=== PATIENT | male | born 1980 | race Caucasian/White ===

== ENCOUNTER → 2021-11-20 14:11 | Outpatient (BNVA) | payer SELFPAY | PROVIDERS: PCP Internal Medicine; Visit Provider Internal Medicine | DX: Z02.79 Encounter for issue of other medical certificate (principal) ==

== ENCOUNTER 2022-07-14 10:34 | Emergency (ER) | payer OTHER, SELFPAY ==
--- NOTE | ~2022-07-14 | MR_ITS ---
EXAMINATION: MR BRAIN WITHOUT CONTRAST CLINICAL INFORMATION: Left upper extremity numbness. Rule out acute stroke. COMPARISON: Head CT dated 07/14/2022. TECHNIQUE: Multiplanar, multisequence imaging of the brain was performed without contrast. FINDINGS: No diffusion abnormalities are identified to suggest an acute infarct. The ventricles are normal in size. No mass effect or midline shift is seen. No brain parenchymal signal abnormality is noted. No extra-axial fluid collections are seen. The brainstem and cerebellum are normal. There is mild generalized parenchymal volume loss for patient age. The gradient refocused acquisition demonstrates no pathologic magnetic susceptibility artifact to indicate underlying acute or chronic blood products. The craniovertebral junction, marrow signal, and midline structures are normal. The major intracranial flow voids at the level of the [place] are preserved. The dural venous sinus flow voids are maintained. The mastoid air cells are well aerated. There is moderate ethmoid sinus mucosal thickening and milder mucosal thickening in the maxillary antra bilaterally. The remaining paranasal sinuses are fairly well aerated. MR/MR head/brain wo con IMPRESSION: No acute intracranial process. Moderate ethmoid sinus mucosal thickening.
--- NOTE | ~2022-07-14 | XR_ITS ---
EXAMINATION: XR CHEST CLINICAL INFORMATION: Palpitations COMPARISON: 03/06/2006 TECHNIQUE: Frontal view of the chest was obtained. FINDINGS: Cardiac leads overlie the chest. The lungs are well expanded. There is no focal consolidation, edema, or effusion. No pneumothorax. The cardiomediastinal silhouette is within normal limits. No acute osseous abnormality. XR/XR chest 1V IMPRESSION: No acute pulmonary disease.
--- NOTE | ~2022-07-14 | CT_ITS ---
EXAMINATION: CT HEAD WITHOUT CONTRAST CLINICAL INFORMATION: Left arm numbness. COMPARISON: None TECHNIQUE: Contiguous axial imaging was performed from the skull base to vertex without intravenous administration of contrast. Coronal and sagittal reformatted images were obtained. This CT examination was performed using dose optimization techniques as appropriate, variously including the following: *Automated exposure control *Adjustment of mA and/or kV according to patient size (this includes techniques or standardized protocols for targeted exams where dose is matched to indication/reason for exam; i.e. extremities or head) *Use of iterative reconstruction technique DLP: 784 mGy-cm FINDINGS: The cortical sulci are normal. The lateral ventricles are symmetrical. The third and fourth ventricles are in their normal midline position. The basilar and prepontine cisterns are unremarkable. There is no acute intra or extracerebral abnormality. There is no mass effect or midline shift. Sections through the bony calvarium are unremarkable. The paranasal sinuses are clear. The bony orbits and orbital contents are unremarkable. CT/CT head/brain wo IV con IMPRESSION: No acute intracranial pathology.
--- NOTE | 2022-07-14 10:40 | ECG_ITS ---
Test Reason : IRREGULAR HR Blood Pressure : / mmHG Vent. Rate : 124 BPM Atrial Rate : 124 BPM P-R Int : 142 ms QRS Dur : 088 ms QT Int : 320 ms P-R-T Axes : 029 028 -02 degrees QTc Int : 459 ms Sinus tachycardia Otherwise normal ECG When compared with ECG of 07-MAY-2004 11:27, No significant change was found Referred By: Generic ED Physician Electronically Signed By:Jose Carlos Lantigua
[2022-07-14 10:46] VITALS: BP 179/115; PULSE 121; RESP 18; TEMP 37.1; O2SAT 97; BMI 33.6
[2022-07-14 10:51] VITALS: BP 168/108
--- NOTE | 2022-07-14 11:32 | ED.NEUROSD ---
HPI - Neuro Symptoms/Deficit General Chief Complaint: Neuro Symptoms/Deficit Stated Complaint: tingling in L hand,head and ear, chest pain Time Seen by Provider: 07/14/22 11:09 Source: patient Mode of arrival: ambulatory Limitations: no limitations History of Present Illness HPI Narrative: A 42-year-old male came in for evaluation of 2 days of palpitation and feeling numbness in left upper extremities and the back of his head for the past 2 days, but no weakness. 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 Related Data Allergies Allergy/AdvReac Type Severity Reaction Status Date / Time coconut Allergy Unknown UNKNOWN Unverified 01/18/20 15:10 Review of Systems Review of Systems: All other systems are reviewed and are negative Constitutional: Reports as per HPI and Reports no additional constitutional complaints Eyes: Reports as per HPI and Reports no additional eye complaints Reports system reviewed and no additional complaints, except as documented Cardiovascular: Reports as per HPI and Reports no additional cardiovascular complaints Respiratory: Reports as per HPI and Reports no additional respiratory complaints Gastrointestinal: Reports as per HPI and Reports no additional gastrointestinal complaints Genitourinary: Reports no additional female genitourinary complaints Musculoskeletal: Reports no additional musculoskeletal complaints Skin/Breast: Reports system reviewed and no additional complaints, except as docu Psychiatric: Reports no additional psychiatric complaints Endocrine: Reports no additional endocrine complaints Hematologic/Lymphatic: Reports no additional hematologic/lymphatic complaints Allergic/Immunologic: Reports no additional allergic/immunologic complaints Reports system reviewed and no additional complaints, except as documented and Reports Abnormal speech present [facility] Social History Social History Alcohol intake: current Alcohol type: beer and hard liquor Smoked in Last 30 Days: No Use of substances other than those prescribed or required for medical reasons: Yes Substance Use Type: Crack/Cocaine and Marijuana Substance Use Frequency: Occasionally Last Used Substance: Weeks (ago) Any prior treatment program specific to substance use: No Advance Directives: No Physical Exam Vital Signs: Vital Signs: Last Vital Signs Temp 98.7 F 07/14/22 10:46 Pulse 112 H 07/14/22 14:16 Resp 20 07/14/22 14:16 BP 186/109 H 07/14/22 14:16 Pulse Ox 97 07/14/22 14:16 O2 Del Method 07/14/22 14:16 BMI result Body Mass Index 33.6 Vital signs have been reviewed as appeared to be correct. Blood pressure normal. Heart rate normal. Respiration rate normal. Temperature normal. Oxygen saturation normal. Appearance: Anxious, Alert. Oriented X3. No acute distress. Head: Normal external exam. Normocephalic. Atraumatic. No Krishnan signs noted. No raccoon eyes noted Eyes: PERRLA. EOMI. Conjunctiva and sclera normal. Eyelids normal. ENT: TM's Normal. Pharynx normal. Uvula midline. Moist mucous membranes. No trismus noted. No drooling noted. No muffled voice noted. Neck: Normal inspection. Neck supple. FROM. No adenopathy. Thyroid Normal. No meningeal signs. No neck mass noted. CVS: Normal heart rate and rhythm. Heart sound normal. No murmurs noted. Pulses normal throughout. Respiratory: No respiratory distress. Painless inspiration. Breath sounds normal. No wheezes/rales/rhonchi noted. Chest nontender. No accessory muscle usage noted or decreased air movement noted. Abdomen: Soft and nontender. Bowel sounds normal in all 4 quadrants. No distention noted. No organomegaly noted. No visible injury noted. Back: No CVA tenderness. Full range of motion noted. Skin: Skin warm and dry. Normal skin color. Normal skin turgor. No rashes/lesions/lacerations noted. Extremities: No lower extremity edema. Extremities exhibit normal range of motion. Extremities nontender. Neuro: Oriented X 3. Cranial nerve exam: II-XII are grossly intact No motor deficit. No sensory deficit. Reflexes normal. Course Course Course Narrative: 42-year-old male daily drinker of alcohol came in with palpitation and feeling numbness in his left side of his body, patient with a normal neuro exam, hypertension start the patient on atenolol, because patient is showing symptoms of alcohol withdrawal will start the patient on phenobarb. Medications Administered Discontinued Medications Generic Name Dose Route Start Last Admin Trade Name Freq PRN Reason Stop Dose Admin Atenolol 50 mg 07/14/22 15:20 07/14/22 15:51 Atenolol 50 Mg Tablet PO 07/14/22 15:21 50 mg ONCE ONE Administration Protocol Sodium Chloride 1,000 mls @ 999 mls/hr 07/14/22 11:20 07/14/22 12:56 Ns IV 07/14/22 12:20 Infused .Q1H1M ONE Infusion Medical Decision Making Differential Diagnosis Differential Diagnoses: The differential diagnosis associated with the presentation includes TIA, CVA, alcohol withdrawal, hypertension. Admission/Observation Consideration of admission/observation: Escalation of care including admission/observation considered Consult Healthcare Provider Management of the patient was discussed with: Hospitalist Lab Data MDM Lab Attestation statement: I reviewed the patient's lab results. 07/14/22 11:42 07/14/22 11:42 Labs: Lab Results 07/14/22 07/14/22 07/14/22 Range/Units 11:42 11:42 11:42 WBC 8.1 (4.8-10.8) X10*3/uL RBC 4.63 (4.60-5.80) X10*6/uL Hgb 14.6 (14.0-18.0) g/dl Hct 42.5 (42.0-52.0) % MCV 91.8 (80.0-98.0) fL MCH 31.5 (27.0-33.0) pg MCHC 34.4 (31.0-36.0) g/dl RDW 13.7 (11.0-16.0) % Plt Count 159 L (160-400) X10*3/uL MPV 10.0 (9.4-12.4) fL Immature Gran % (Auto) 0.2 (0.0-0.4) % Neut % (Auto) 72.8 (45-73) % Lymph % (Auto) 17.6 L (20-40) % [place] % (Auto) 7.6 (2-11) % Eos % (Auto) 1.6 (0-4) % Baso % (Auto) 0.2 (0-2) % Lymph # (Auto) 1.4 (1.2-4.9) X10*3/uL [place] # (Auto) 0.6 (0.1-1.2) X10*3/uL Eos # (Auto) 0.1 (0.0-0.4) X10*3/uL Baso # (Auto) 0.0 (0.0-0.2) X10*3/uL Abs Immat Gran (auto) 0.02 (0.00-0.03) X10*3/uL Absolute Neuts (auto) 5.9 (2.0-8.3) x10*3/uL Absolute Nucleated RBC 0.000 (0.0-0.012) X10*3/uL Nucleated RBC % (auto) 0.0 (0.0-0.2) /100WBC Sodium 143 (135-145) mmol/L Potassium 4.5 (3.3-5.1) mmol/L Chloride 107 (96-108) mmol/L Carbon Dioxide 25 (22-29) mmol/L Anion Gap 16 (12-20) BUN 12 (9-16) mg/dL Creatinine 1.21 (0.5-1.4) mg/dL Estim Creat Clear Calc 86.6 Estimated GFR > 60 Random Glucose 104 (60-115) mg/dL Calcium 9.0 (8.4-10.2) mg/dL Total Bilirubin 0.3 (0.0-1.0) mg/dL Direct Bilirubin < 0.2 (0.0-0.5) mg/dL AST 48 H (5-37) U/L ALT 46 H (0-40) U/L Alkaline Phosphatase 64 (39-117) U/L Troponin I High Sens 5.7 (<3.5-35.0) ng/L Total Protein 7.2 (6.5-8.0) g/dL Albumin 4.1 (3.5-5.0) g/dL Lipase 65 (8-78) U/L Urine Color Urine Appearance Urine pH (5.0-9.0) Ur Specific [place] (1.005-1.025) Urine Protein (Neg-Trace) mg/dL Urine Glucose (UA) (Negative) mg/dL Urine Ketones (Negative) mg/dL Urine Blood (Negative) Urine Nitrite (Negative) Ur Leukocyte Esterase (Negative) 07/14/22 Range/Units 13:45 WBC (4.8-10.8) X10*3/uL RBC (4.60-5.80) X10*6/uL Hgb (14.0-18.0) g/dl Hct (42.0-52.0) % MCV (80.0-98.0) fL MCH (27.0-33.0) pg MCHC (31.0-36.0) g/dl RDW (11.0-16.0) % Plt Count (160-400) X10*3/uL MPV (9.4-12.4) fL Immature Gran % (Auto) (0.0-0.4) % Neut % (Auto) (45-73) % Lymph % (Auto) (20-40) % [place] % (Auto) (2-11) % Eos % (Auto) (0-4) % Baso % (Auto) (0-2) % Lymph # (Auto) (1.2-4.9) X10*3/uL [place] # (Auto) (0.1-1.2) X10*3/uL Eos # (Auto) (0.0-0.4) X10*3/uL Baso # (Auto) (0.0-0.2) X10*3/uL Abs Immat Gran (auto) (0.00-0.03) X10*3/uL Absolute Neuts (auto) (2.0-8.3) x10*3/uL Absolute Nucleated RBC (0.0-0.012) X10*3/uL Nucleated RBC % (auto) (0.0-0.2) /100WBC Sodium (135-145) mmol/L Potassium (3.3-5.1) mmol/L Chloride (96-108) mmol/L Carbon Dioxide (22-29) mmol/L Anion Gap (12-20) BUN (9-16) mg/dL Creatinine (0.5-1.4) mg/dL Estim Creat Clear Calc Estimated GFR Random Glucose (60-115) mg/dL Calcium (8.4-10.2) mg/dL Total Bilirubin (0.0-1.0) mg/dL Direct Bilirubin (0.0-0.5) mg/dL AST (5-37) U/L ALT (0-40) U/L Alkaline Phosphatase (39-117) U/L Troponin I High Sens (<3.5-35.0) ng/L Total Protein (6.5-8.0) g/dL Albumin (3.5-5.0) g/dL Lipase (8-78) U/L Urine Color Yellow Urine Appearance Clear Urine pH 6.5 (5.0-9.0) Ur Specific [place] 1.020 (1.005-1.025) Urine Protein Trace (Neg-Trace) mg/dL Urine Glucose (UA) Negative (Negative) mg/dL Urine Ketones Trace (Negative) mg/dL Urine Blood Negative (Negative) Urine Nitrite Negative (Negative) Ur Leukocyte Esterase Negative (Negative) Independent Interpretation I performed an independent interpretation of an: EKG (Sinus tachycardia at 124 beats per minutes, normal axis deviation, with normal intervals, no significant change from previous EKG.) and CT Scan (Head: No acute intracranial pathology.) Interpretation: MRI of the brain: No acute stroke. Radiology Impression Discussion of test interpretation with radiology: I have reviewed the radiologist's reading. Discharge Plan Discharge Clinical Impression: Alcohol withdrawal, Hypertension Patient Disposition: Admitted As Inpatient
[2022-07-14] MEDS: 0.9 % Sodium Chloride 1,000 ML 999 ML IV (11:43)
[2022-07-14 11:48] LABS: MANUAL DIFF FLAG NO
[2022-07-14 11:50] LABS: Basophils Percent Auto 0.2 % (0-2); Eosinophils Absolute Auto 0.1 X10*3/uL (0.0-0.4); Eosinophils Percent Auto 1.6 % (0-4); Hematocrit 42.5 % (42.0-52.0); Hemoglobin 14.6 g/dl (14.0-18.0); Imm Gran Abs Auto 0.02 X10*3/uL (0.00-0.03); Imm Gran Pct Auto 0.2 % (0.0-0.4); Lymphocytes Absolute Auto 1.4 X10*3/uL (1.2-4.9); Lymphocytes Percent Auto 17.6 % (20-40); Mean Corpuscular HGB Conc 34.4 g/dl (31.0-36.0); Mean Corpuscular Hemoglobin 31.5 pg (27.0-33.0); Mean Corpuscular Volume 91.8 fL (80.0-98.0); Monocytes Absolute Auto 0.6 X10*3/uL (0.1-1.2); Monocytes Percent Auto 7.6 % (2-11); Neutrophils Absolute Auto 5.9 x10*3/uL (2.0-8.3); Neutrophils Percent Auto 72.8 % (45-73); Platelet Count 159 X10*3/uL (160-400); Red Blood Count 4.63 X10*6/uL (4.60-5.80); Red Cell Distribution Width 13.7 % (11.0-16.0); White Blood Count 8.1 X10*3/uL (4.8-10.8)
[2022-07-14 12:11] LABS: Alanine Aminotransferase 46 U/L (0-40); Albumin Level 4.1 g/dL (3.5-5.0); Alkaline Phosphatase 64 U/L (39-117); Anion Gap 16 (12-20); Aspartate Amino Transferase 48 U/L (5-37); Bilirubin Direct < 0.2 mg/dL (0.0-0.5); Bilirubin Total 0.3 mg/dL (0.0-1.0); Blood Urea Nitrogen 12 mg/dL (9-16); Carbon Dioxide 25 mmol/L (22-29); Chloride 107 mmol/L (96-108); Creatinine Clr Calc Pharmacy 86.6; Estimated Glomerular Filt Rate > 60; Glucose Random 104 mg/dL (60-115); Lipase 65 U/L (8-78); Potassium 4.5 mmol/L (3.3-5.1); Sodium 143 mmol/L (135-145); Total Protein 7.2 g/dL (6.5-8.0)
[2022-07-14 12:18] LABS: Troponin-I High Sensitivity 5.7 ng/L (<3.5-35.0)
[2022-07-14 13:51] LABS: Appearance Urine Clear; Color Urine Yellow; Glucose Urine UA Negative (Negative); Leukocyte Esterase Urine Negative (Negative); Nitrite Urine Negative (Negative); PH 6.5 (5.0-9.0); Urine Blood Negative (Negative); Urine Ketones Trace mg/dL (Negative); Urine Protein Trace mg/dL (Neg-Trace)
[2022-07-14 14:16] VITALS: BP 186/109; PULSE 112; RESP 20; O2SAT 97
[2022-07-14] MEDS: atenoloL 50 MG TABLET PO (15:51)
[2022-07-14] MEDS: PHENobarbitaL sodium 130 MG/ML IM ONCE 265 MG IM (17:06)
--- NOTE | 2022-07-14 17:23 | PHA.MEDREC ---
Pharmacy Consult ? Medication Reconciliation Pharmacy has completed the medication reconciliation. Pt does not take any home meds but did take 4 tablets of chew aspirin 81 mg today 07/14/22
[2022-07-14 18:41] VITALS: BP 182/109; PULSE 83; RESP 16
[2022-07-14] MEDS: lisinopriL 10 MG TABLET PO ×2 (18:47→21:36)
[2022-07-14] MEDS: Labetalol HCL 100 MG/20 ML VIAL 10 MG IVPUSH (18:47)
[2022-07-14] MEDS: chlordiazePOXIDE HCl 25 MG CAPSULE 50 MG PO (18:47)
--- NOTE | 2022-07-14 18:51 | ED.NEUROSD ---
HPI - Neuro Symptoms/Deficit General Chief Complaint: Neuro Symptoms/Deficit Stated Complaint: tingling in L hand,head and ear, chest pain Time Seen by Provider: 07/14/22 11:09 Related Data Previous Rx's Medication Instructions Recorded chlordiazepoxide HCl 25 mg capsule 50 mg PO Q6-8H PRN alcohol 07/14/22 withdrawal #16 caps lisinopril 20 1 tab PO DAILY #90 tabs 07/14/22 mg-hydrochlorothiazide 12.5 mg tablet Allergies Allergy/AdvReac Type Severity Reaction Status Date / Time coconut Allergy Unknown UNKNOWN Unverified 01/18/20 15:10 [facility] Social History Social History Alcohol intake: current Alcohol type: beer and hard liquor Smoked in Last 30 Days: No Use of substances other than those prescribed or required for medical reasons: Yes Substance Use Type: Crack/Cocaine and Marijuana Substance Use Frequency: Occasionally Last Used Substance: Weeks (ago) Any prior treatment program specific to substance use: No Advance Directives: No Physical Exam Vital Signs: Vital Signs: Last Vital Signs Temp 98.2 F 07/14/22 20:10 Pulse 82 07/14/22 20:10 Resp 11 L 07/14/22 20:10 BP 153/108 H 07/14/22 20:10 Pulse Ox 97 07/14/22 20:10 O2 Del Method 07/14/22 20:10 BMI result Body Mass Index 33.6 Medications Administered Discontinued Medications Generic Name Dose Route Start Last Admin Trade Name Freq PRN Reason Stop Dose Admin Atenolol 50 mg 07/14/22 15:20 07/14/22 15:51 Atenolol 50 Mg Tablet PO 07/14/22 15:21 50 mg ONCE ONE Administration Protocol Chlordiazepoxide HCl 50 mg 07/14/22 18:39 07/14/22 18:47 Chlordiazepoxide Hcl 25 Mg Capsule PO 07/14/22 18:40 50 mg ONCE ONE Administration Sodium Chloride 1,000 mls @ 999 mls/hr 07/14/22 11:20 07/14/22 12:56 Ns IV 07/14/22 12:20 Infused .Q1H1M ONE Infusion Labetalol HCl 10 mg 07/14/22 18:43 07/14/22 18:47 Labetalol Hcl 100 Mg/20 Ml Vial IVPUSH 07/14/22 18:44 10 mg ONCE ONE Administration Lisinopril 10 mg 07/14/22 18:43 07/14/22 18:47 Lisinopril 10 Mg Tablet PO 07/14/22 18:44 10 mg ONCE ONE Administration Protocol Lisinopril 10 mg 07/14/22 20:15 07/14/22 21:36 Lisinopril 10 Mg Tablet PO 07/14/22 20:16 10 mg ONCE ONE Administration Protocol Phenobarbital Sodium 265 mg 07/14/22 16:00 07/14/22 17:06 Phenobarbital Sodium 130 Mg/Ml Im Once IM 07/14/22 16:01 265 mg ONCE ONE Administration Protocol Medical Decision Making Lab Data 07/14/22 11:42 07/14/22 11:42 Labs: Lab Results 07/14/22 07/14/22 07/14/22 Range/Units 11:42 11:42 11:42 WBC 8.1 (4.8-10.8) X10*3/uL RBC 4.63 (4.60-5.80) X10*6/uL Hgb 14.6 (14.0-18.0) g/dl Hct 42.5 (42.0-52.0) % MCV 91.8 (80.0-98.0) fL MCH 31.5 (27.0-33.0) pg MCHC 34.4 (31.0-36.0) g/dl RDW 13.7 (11.0-16.0) % Plt Count 159 L (160-400) X10*3/uL MPV 10.0 (9.4-12.4) fL Immature Gran % (Auto) 0.2 (0.0-0.4) % Neut % (Auto) 72.8 (45-73) % Lymph % (Auto) 17.6 L (20-40) % [place] % (Auto) 7.6 (2-11) % Eos % (Auto) 1.6 (0-4) % Baso % (Auto) 0.2 (0-2) % Lymph # (Auto) 1.4 (1.2-4.9) X10*3/uL [place] # (Auto) 0.6 (0.1-1.2) X10*3/uL Eos # (Auto) 0.1 (0.0-0.4) X10*3/uL Baso # (Auto) 0.0 (0.0-0.2) X10*3/uL Abs Immat Gran (auto) 0.02 (0.00-0.03) X10*3/uL Absolute Neuts (auto) 5.9 (2.0-8.3) x10*3/uL Absolute Nucleated RBC 0.000 (0.0-0.012) X10*3/uL Nucleated RBC % (auto) 0.0 (0.0-0.2) /100WBC Sodium 143 (135-145) mmol/L Potassium 4.5 (3.3-5.1) mmol/L Chloride 107 (96-108) mmol/L Carbon Dioxide 25 (22-29) mmol/L Anion Gap 16 (12-20) BUN 12 (9-16) mg/dL Creatinine 1.21 (0.5-1.4) mg/dL Estim Creat Clear Calc 86.6 Estimated GFR > 60 Random Glucose 104 (60-115) mg/dL Calcium 9.0 (8.4-10.2) mg/dL Total Bilirubin 0.3 (0.0-1.0) mg/dL Direct Bilirubin < 0.2 (0.0-0.5) mg/dL AST 48 H (5-37) U/L ALT 46 H (0-40) U/L Alkaline Phosphatase 64 (39-117) U/L Troponin I High Sens 5.7 (<3.5-35.0) ng/L Total Protein 7.2 (6.5-8.0) g/dL Albumin 4.1 (3.5-5.0) g/dL Lipase 65 (8-78) U/L Urine Color Urine Appearance Urine pH (5.0-9.0) Ur Specific [place] (1.005-1.025) Urine Protein (Neg-Trace) mg/dL Urine Glucose (UA) (Negative) mg/dL Urine Ketones (Negative) mg/dL Urine Blood (Negative) Urine Nitrite (Negative) Ur Leukocyte Esterase (Negative) 07/14/22 Range/Units 13:45 WBC (4.8-10.8) X10*3/uL RBC (4.60-5.80) X10*6/uL Hgb (14.0-18.0) g/dl Hct (42.0-52.0) % MCV (80.0-98.0) fL MCH (27.0-33.0) pg MCHC (31.0-36.0) g/dl RDW (11.0-16.0) % Plt Count (160-400) X10*3/uL MPV (9.4-12.4) fL Immature Gran % (Auto) (0.0-0.4) % Neut % (Auto) (45-73) % Lymph % (Auto) (20-40) % [place] % (Auto) (2-11) % Eos % (Auto) (0-4) % Baso % (Auto) (0-2) % Lymph # (Auto) (1.2-4.9) X10*3/uL [place] # (Auto) (0.1-1.2) X10*3/uL Eos # (Auto) (0.0-0.4) X10*3/uL Baso # (Auto) (0.0-0.2) X10*3/uL Abs Immat Gran (auto) (0.00-0.03) X10*3/uL Absolute Neuts (auto) (2.0-8.3) x10*3/uL Absolute Nucleated RBC (0.0-0.012) X10*3/uL Nucleated RBC % (auto) (0.0-0.2) /100WBC Sodium (135-145) mmol/L Potassium (3.3-5.1) mmol/L Chloride (96-108) mmol/L Carbon Dioxide (22-29) mmol/L Anion Gap (12-20) BUN (9-16) mg/dL Creatinine (0.5-1.4) mg/dL Estim Creat Clear Calc Estimated GFR Random Glucose (60-115) mg/dL Calcium (8.4-10.2) mg/dL Total Bilirubin (0.0-1.0) mg/dL Direct Bilirubin (0.0-0.5) mg/dL AST (5-37) U/L ALT (0-40) U/L Alkaline Phosphatase (39-117) U/L Troponin I High Sens (<3.5-35.0) ng/L Total Protein (6.5-8.0) g/dL Albumin (3.5-5.0) g/dL Lipase (8-78) U/L Urine Color Yellow Urine Appearance Clear Urine pH 6.5 (5.0-9.0) Ur Specific [place] 1.020 (1.005-1.025) Urine Protein Trace (Neg-Trace) mg/dL Urine Glucose (UA) Negative (Negative) mg/dL Urine Ketones Trace (Negative) mg/dL Urine Blood Negative (Negative) Urine Nitrite Negative (Negative) Ur Leukocyte Esterase Negative (Negative) Discharge Plan Discharge Clinical Impression: Alcohol withdrawal Qualifiers: Complication of substance-induced condition: uncomplicated Qualified Code(s): F10.930 - Alcohol use, unspecified with withdrawal, uncomplicated Hypertension Qualifiers: Hypertension type: primary hypertension Qualified Code(s): I10 - Essential (primary) hypertension Patient Disposition: Home, Self-Care Instructions: Alcohol Withdrawal (ED), Hypertension (ED) Additional Instructions: Stop drinking alcohol Check blood pressure daily should be less than 135/85 Blood pressure medication as prescribed Follow up with PCP and detox Prescriptions: New lisinopril-hydrochlorothiazide 20-12.5 mg tablet 1 tab PO DAILY Qty: 90 3RF chlordiazepoxide HCl 25 mg capsule 50 mg PO Q6-8H PRN (Reason: alcohol withdrawal) Qty: 16 0RF Rx Instructions: until symptoms controlled Interventions: ED Discharge Assessment Last Done: 07/14/22 21:41
[2022-07-14 19:46] VITALS: BP 161/111; PULSE 81
[2022-07-14 20:10] VITALS: BP 153/108; PULSE 82; RESP 11; TEMP 36.8; O2SAT 97
== END 2022-07-16 19:33 | disposition home or self-care (01) ==
PROVIDERS: Emergency Provider Emergency Medicine; PCP Student in an Organized Health Care Education/Training Program
DX: F10.930 Alcohol use, unspecified with withdrawal, uncomplicated (principal); Y90.9 Presence of alcohol in blood, level not specified; I10 Essential (primary) hypertension
CPT/HCPCS: 36415; 70450; 70551; 71045; 80048; 80076; 81003; 83690; 84484; 85025; 93005; 96361; 96372; 96374; 99285; J2560

== ENCOUNTER → 2022-07-30 12:44 | Outpatient (BNVA) | payer SELFPAY | PROVIDERS: PCP Physician Assistant; Visit Provider Physician Assistant | DX: Z02.79 Encounter for issue of other medical certificate (principal) ==

== ENCOUNTER 2022-11-12 11:15 | Outpatient (AMB) | payer OTHER, SELFPAY ==
--- NOTE | 2022-11-12 11:16 | MHC.PC.OV ---
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, requesting physical Load Manager Required: No Accompanied by: Self / Same As Patient Allergies coconut Allergy (Unknown, Verified 11/12/22 12:10) UNKNOWN Medication List - Last Reconciled 11/12/22 by Neal Gann PA-C lisinopril-hydrochlorothiazide 20-12.5 mg 1 tab PO DAILY Tobacco use date assessed: 11/12/22 Dental Screening Dental Screen Date: 11/12/22 Did you have a dental visit in the last 12 months?: No Did you have a dental problem in the last 6 months where you did not have access to dental care?: No Was dental information given to patient?: No 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 Patient has a past medical history significant for hypertension, alcohol dependency.. . Hypertension: Has had hypertension for many years now and has been on lisinopril hydrochlorothiazide. Does understand his drinking and smoking has been causing his blood pressure to worsen. He does report as of late having localize chest discomfort in his chest at rest. He attributes this to his previous smoking and has quit smoking over the last few weeks. .. Alcohol use disorder: Over the last several weeks has been reducing his alcohol intake. He does report being heavy alcohol drinker and does understand this is a problem. He is willing to try medication to help with his cravings. He has reduced his alcohol intake to 3 beers daily. .. Obesity: He does understand his BMI is over 30 will try to work on being more physically active and adapt to better eating habits to reduce his weight Vaccines: Up-to-date with COVID vaccine, needs tetanus vaccine though declines today PFSH Family History (Updated 11/12/22 @ 12:16 by Neal Gann PA-C) Father Diabetes Valvular heart disease Social History (Updated 11/12/22 @ 12:16 by Neal Gann PA-C) Housing: House Alcohol intake: current Alcohol intake frequency: 3 or more drinks per day Alcohol type: beer Patient Tobacco Use Status: Former Tobacco user Quit Date: 10/2022 Tobacco use type: Cigarette e-Cigarette/Vaping Use: Never Used Substance Use Type: Crack/Cocaine and Marijuana service: No Current occupational status: employed 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 Current occupational exposures/hazards: No Cognitive needs: No Hearing needs: No Vision needs: No Review of Systems Const Denies body aches, Denies chills, Denies excessive sweating, Denies fatigue, Denies fever(s) and Denies headache(s) Eyes Denies blurry vision ENT Denies dysphagia, Denies vertigo, Denies dizziness, Denies headache(s), Denies hearing loss and Denies tinnitus Card Denies chest pain, Denies chest pain with activity, Denies syncope, Denies irregular heart rhythm and Denies dyspnea Resp Denies chest congestion, Denies cough, Denies hemoptysis, Denies dyspnea and Denies wheezing GI Denies abdominal pain, Denies melena, Denies hematochezia, Denies coffee ground emesis, Denies dysphagia, Denies diarrhea, Denies nausea and Denies vomiting Denies difficulty urinating, Denies dysuria, Denies urinary frequency, Denies urinary hesitancy and Denies urinary urgency Musc Denies arthralgias, Denies limited range of motion, Denies muscle cramps and Denies muscle weakness Skin/Breast Denies rash and Denies skin ulcer Neuro Denies Abnormal speech present, Denies confusion, Denies vertigo, Denies dizziness, Denies syncope, Denies headache(s), Denies memory loss and Denies seizure-like activity Psych Denies anxiety, Denies confusion, Denies depression, Denies memory loss, Denies panic attacks and Denies paranoia Endo Denies excessive sweating, Denies fatigue, Denies flushing, Denies polydipsia and Denies polyuria Aller/Immun Denies wheezing Physical exam (Primary Care) Vital Signs: Last Vital Signs Pulse 82 11/12/22 11:28 BP 140/90 H 11/12/22 11:28 Pulse Ox 98 11/12/22 11:28 Oxygen Delivery Method Room Air 11/12/22 11:28 BMI result Body Mass Index 32.0 BMI Assessment/Plan discussion: High Tobacco/Smoking Status: Tobacco use Status Tobacco use date assessed 11/12/22 11/12/22 11:18 Patient Tobacco Use Status Former Tobacco user 11/12/22 12:16 Tobacco use type Cigarette 11/12/22 12:16 e-Cigarette/Vaping Use Never Used 11/12/22 12:16 Const Other: Obese General: cooperative, comfortable, no acute distress, alert and awake; No confusion Orientation/consciousness: oriented to person, oriented to place, patient oriented x3 and No confusion HENMT Head: Yes normocephalic Ears: external ears normal and TM's normal bilaterally Face and sinus: No sinus tenderness Mouth: Normal oral and palatal mucosa present and tongue normal Teeth and gingiva: dentition normal and gingiva normal Throat: Yes posterior oropharynx normal, Yes tonsils normal and Yes uvula midline Eyes Conjunctivae: conjunctivae normal Sclerae: sclerae normal Pupils: Equal, round and reactive pupils present EOM: EOMs intact bilaterally Direct Ophthalmoscopy: No no photophobia Neck Neck: Yes no lymphadenopathy, No tender and Yes no JVD Thyroid: Thyroid normal Carotids: no bruits Chest Chest palpation & inspection: no tenderness Resp Effort & Inspection: normal respiratory effort, no audible wheezes, not labored and no stridor Auscultation: no crackles, no rales, no rhonchi and no wheezes Cardio Jugular venous distension: no JVD Rate: regular rate, not bradycardic and not tachycardic Rhythm: regular rhythm Bruits: no carotid bruits Peripheral pulses: Peripheral pulses 2+ throughout GI Inspection: Yes normal to inspection, No abdominal wall ecchymosis and No visible herniation Palpation (GI): Soft to palpation, nontender, no guarding, not rigid and No hepatosplenomegaly present Auscultation: normoactive bowel sounds General: Yes no CVA tenderness Back/Spine/Pelvis Back: no CVA tenderness and No back tenderness Cervical Spine: cervical ROM normal Thoracic/Lumbar Spine: thoracic and lumbar spine normal to inspection, straight leg raise negative bilaterally, No thoraco-lumbar ROM limited and No lumbar spinal tenderness Skin Lesions: no lesions Rashes: no rashes Wounds: no wounds Neuro General: oriented to person, oriented to place, patient oriented x3, CN's II-XI intact bilaterally and No confusion Cranial nerves: Yes Equal, round and reactive pupils present and Yes Normal accommodation reflex present Cognition (Neuro): normal cognition Speech: No Abnormal speech present Gait exam (Neuro): Normal gait present Motor exam (neuro): 5/5 motor strength present throughout Extrem Right upper extremity: full ROM; no cyanosis Left upper extremity: full ROM; no cyanosis Right lower extremity: no edema Left lower extremity: no edema Psych Appearance: grossly normal Mental Status: mental status grossly normal Affect: normal affect Attitude: cooperative Thought process: Normal thought process present Assessment and Plan Assessment & Plan (1) Annual physical exam: Code(s): Z00.00 - Encounter for general adult medical examination without abnormal findings (2) Hypertension: Code(s): I10 - Essential (primary) hypertension Qualifiers: Hypertension type: primary hypertension Qualified Code(s): I10 - Essential (primary) hypertension Plan: Patient's blood pressure slightly elevated today in office, advised to monitor blood pressure at home with goal blood pressure to be below 140/90. He will we restarted on lisinopril hydrochlorothiazide. Again reinforced low-sodium diet. (3) Screening for diabetes mellitus (DM): Code(s): Z13.1 - Encounter for screening for diabetes mellitus (4) Alcohol use disorder: Code(s): F10.90 - Alcohol use, unspecified, uncomplicated Plan: Patient does admit that he has a problem with alcohol. Has reduced his alcohol drinking to 3 beers a day. He reports previously drinking a full handle liquor and 1 day. He is willing to try naltrexone on a daily basis to help him with his cravings. Will follow-up in next 4-6 weeks to evaluate his progress. (5) Chest pain at rest: Code(s): R07.9 - Chest pain, unspecified Plan: Patient does report lately having some chest pain at rest to which he attributes to smoking. Will send for cardiac stress test due to having risk for coronary artery disease (6) Obese: Code(s): E66.9 - Obesity, unspecified Qualifiers: Obesity type: due to excess calories Obesity classification: adult class 1 (BMI 30 - 34.9) Serious obesity comorbidity presence: without serious comorbidity Body mass index: BMI 32.0-32.9 Qualified Code(s): E66.09 - Other obesity due to excess calories; Z68.32 - Body mass index [BMI] 32.0-32.9, adult Plan: Patient does understand his BMI is over 30 will work on being more physically active and adapting to better eating habits to reduce his weight (7) Former smoker: Code(s): Z87.891 - Personal history of nicotine dependence (8) Borderline high cholesterol: Code(s): E78.9 - Disorder of lipoprotein metabolism, unspecified Plan: Will work on lifestyle modifications to reduce his cholesterol. Has stopped smoking and I congratulated him on this. Goal LDL to be below 130 Orders: Orders Comprehensive [place]. Panel Fast Today Z13.1 - Encounter for screening for diabetes mellitus Microalbumin, Random (w Creat) Today Z13.1 - Encounter for screening for diabetes mellitus CA stress test Today R07.9 - Chest pain, unspecified Lipid Panel Today E78.9 - Disorder of lipoprotein metabolism, unspecified Medications: New naltrexone 50 mg PO DAILY 30 days 30 tabs 3RF F10.90 - Alcohol use, unspecified, uncomplicated naltrexone 50 mg PO DAILY 30 days 30 tabs 3RF F10.90 - Alcohol use, unspecified, uncomplicated Changed From lisinopril-hydrochlorothiazide 20-12.5 mg 1 tab PO DAILY 90 tabs 1RF I10 - Essential (primary) hypertension, R07.9 - Chest pain, unspecified To lisinopril-hydrochlorothiazide 20-12.5 mg 1 tab PO DAILY 90 days 90 tabs 1RF I10 - Essential (primary) hypertension, R07.9 - Chest pain, unspecified Refilled lisinopril-hydrochlorothiazide 20-12.5 mg 1 tab PO DAILY 90 tabs 1RF R07.9 - Chest pain, unspecified Coding Level of Care Code New Pt Prev Care 40-64y(90592) Diagnoses Annual physical exam Z00.00 Hypertension I10 Hypertension type: primary hypertension Screening for diabetes mellitus (DM) Z13.1 Alcohol use disorder F10.90 Chest pain at rest R07.9 Obese E66.09; Z68.32 Obesity type: due to excess calories Obesity classification: adult class 1 (BMI 30 - 34.9) Serious obesity comorbidity presence: without serious comorbidity Body mass index: BMI 32.0-32.9 Former smoker Z87.891 Borderline high cholesterol E78.9
[2022-11-12 11:28] VITALS: BP 140/90; PULSE 82; O2SAT 98; BMI 32.0
== END 2022-11-12 12:28 | disposition home or self-care (01) ==
PROVIDERS: PCP Physician Assistant; Visit Provider Physician Assistant
DX: Z00.00 Encounter for general adult medical examination without abnormal findings (principal); I10 Essential (primary) hypertension; E66.09 Other obesity due to excess calories; Z68.32 Body mass index [BMI] 32.0-32.9, adult; Z87.891 Personal history of nicotine dependence; Z13.1 Encounter for screening for diabetes mellitus; F10.90 Alcohol use, unspecified, uncomplicated; R07.9 Chest pain, unspecified; E78.9 Disorder of lipoprotein metabolism, unspecified
CPT/HCPCS: 99386

== ENCOUNTER 2023-01-26 11:19 | Outpatient (AMB) | payer OTHER, SELFPAY ==
[2023-01-26 11:24] VITALS: BP 100/66; PULSE 97; RESP 17; O2SAT 98; BMI 31.8
--- NOTE | 2023-01-26 11:24 | A.OFFPC_ITS ---
Vital Signs 01/26/23 11:24 Height 5 ft 8 in Weight 209 lb BMI 31.8 BP 100/66 Blood Pressure Location Lt brachial Position Sitting Respiration 17 Pulse 97 Pulse Source Pulse Oximeter Pulse Oximetry (%) 98 Oxygen Delivery Method Room Air Intake Visit Reasons: f/u HTN- ETOH Intake Note: Patient is here to follow up on HTN. Campaign Coordinator Required: No Accompanied by: Self / Same As Patient Allergies coconut Allergy (Unknown, Verified 01/26/23 11:38) UNKNOWN Medication List - Last Reconciled 01/26/23 by Neal Gann PA-C lisinopril-hydrochlorothiazide 20-12.5 mg 1 tab PO DAILY 90 days naltrexone 50 mg PO DAILY 30 days Tobacco use date assessed: 11/12/22 Dental Screening Dental Screen Date: 01/26/23 Did you have a dental visit in the last 12 months?: No Did you have a dental problem in the last 6 months where you did not have access to dental care?: No Was dental information given to patient?: Yes HPI f/u HTN- ETOH HPI Details Patient is a 42-year-old male here today for a follow-up visit. Patient has a past medical history significant for hypertension, alcohol dependency.. Concern-- Since he has stopped drinking alcohol he has noted that his anxiety has been increased. Also taking care of his father whom has dementia which is causing him more anxiety. . Hypertension: Has had hypertension for many years now and has been on lisinopril hydrochlorothiazide. Today patients blood pressure is acceptable. .. Alcohol use disorder: Has been started on naltrexone 50 mg daily which has helped him to drastically reduced his drinking. now only drinking 2 beers per day. 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 1. Little interest or pleasure in doing things: not at all 2. Feeling down, depressed, or hopeless: not at all 3. Trouble falling or staying asleep, or sleeping too much: not at all 4. Feeling tired or having little energy: not at all 5. Poor appetite or overeating: not at all 6. Feeling bad about yourself - or that you are a failure or have let yourself or your family down: not at all 8. Moving or speaking so slowly that other people could have noticed. Or the opposite - being so fidgety or restless that you have been moving around a lot more than usual: not at all 9. Thoughts that you would be better off or of hurting yourself in some way: not at all Depression Screening Interpretation: Negative 01072 - PHQ-9 Billing: Yes Source: Developed by Drs. Remi Ovalles, Irma Webb, James Morataya and colleagues, with an educational marck from [employer] Thrive Questionnaire Date Thrive assessed: 01/26/23 I am a: Patient What is your living situation today?: I have a steady place to live Within the past 12 months, did the food you bought not last and you didn't have the money to get more?: Never true Within the past 12 months, did you worry whether your food would run out before you got money to buy more?: Never true Do you have trouble paying for medicines?: No Do you have trouble getting transportation to medical appointments?: No Do you have trouble paying your heating and electricity bill?: No Do you have trouble taking care of your child, family member or friend?: No Do you have trouble with day-to-day activities such as bathing, preparing meals, shopping, managing finances, etc.?: No Are you currently unemployed and looking for a job?: No Are you interested in more education?: No Please select the resources that you would like help with: None Currently or been in a relationship where the following occur: no concerns reported AUDIT C Alcohol Use Questionnaire (AUDIT-C) 1. How often do you have a drink containing alcohol?: Never 3. How often do you have six or more drinks on one occasion?: Never Total Score: 0 RED-7 AMB Questionnaire RED-7 Date RED - 7 assessed: 01/26/23 Feeling nervous, anxious, or on edge: 3 = Nearly every day Not being able to stop or control worryin = More than half the days Worrying too much about different things: 3 = Nearly every day Trouble relaxin = Nearly every day Being so restless that it is hard to sit still: 3 = Nearly every day Becoming easily annoyed or irritable: 2 = More than half the days Feeling afraid as if something awful might happen: 3 = Nearly every day Total RED-7 score (0-4 normal; 5-9 mild; 10-14 moderate; 15-21 severe): 19 Source: Developed by Drs. Remi Ovalles, Irma Webb, James Morataya and colleagues, with an educational marck from [employer] RED-7 Assessment Billing RED-7 Assessment Tool: RED-7 Assessment 46996 Review of Systems Const Denies headache(s) Eyes Denies loss of vision ENT Denies vertigo, Denies dizziness, Denies headache(s) and Denies sore throat Card Denies chest pain, Denies leg edema and Denies lightheadedness Resp Denies cough, Denies hemoptysis and Denies wheezing GI Denies abdominal pain, Denies melena, Denies constipation, Denies diarrhea and Denies vomiting Denies dysuria, Denies urinary frequency and Denies urinary urgency Musc Denies arthralgias, Denies joint swelling, Denies numbness and Denies tingling Neuro Denies Abnormal speech present, Denies behavioral changes, Denies vertigo, Denies dizziness, Denies headache(s), Denies loss of vision, Denies memory loss, Denies numbness and Denies tingling Psych Denies anxiety, Denies behavioral changes, Denies depression, Denies memory loss and Denies panic attacks Ubaldo/Lymph Denies easy bleeding and Denies easy bruising Aller/Immun Denies wheezing Physical exam (Primary Care) Vital Signs: Last Vital Signs Pulse 97 01/26/23 11:24 Resp 17 01/26/23 11:24 BP 100/66 01/26/23 11:24 Pulse Ox 98 09/26/23 11:24 Oxygen Delivery Method Room Air 01/26/23 11:24 BMI result Body Mass Index 31.8 BMI Assessment/Plan discussion: High Tobacco/Smoking Status: Tobacco use Status Tobacco use date assessed 11/12/22 01/26/23 11:27 Patient Tobacco Use Status Former Tobacco user 01/26/23 11:27 Tobacco use type Cigarette 01/26/23 11:27 e-Cigarette/Vaping Use Never Used 01/26/23 11:27 Are you ready to quit: Yes Tobacco cessation counseling provided: Yes Relapse Prevention: discussed the importance of a supportive environment, discussed negative mood or depression after quitting and discussed dietary, exercise and/or lifestyle changes Number of minutes spent counselin CPT code: 50961 - 4-10 Minutes Depression Screening Interpretation: Negative Thrive Assessment: Date of Thrive Assessment Date Thrive assessed 01/26/23 01/26/23 11:36 Currently or been in a relationship where the following occur: no concerns reported Const General: healthy appearing, no acute distress, alert and awake Nutritional Appearance: well nourished Orientation/consciousness: oriented to person, oriented to place and oriented to time HENMT Ears: TM's normal bilaterally General nose exam: Normal nasal mucous membranes and turbinates present Eyes Conjunctivae: conjunctivae normal Sclerae: sclerae normal Pupils: Equal, round and reactive pupils present Neck Neck: Yes no lymphadenopathy and Yes no JVD Thyroid: Thyroid normal Carotids: no bruits Resp Effort & Inspection: normal respiratory effort and not tachypneic Auscultation: no crackles, no rales, no rhonchi and no wheezes Cardio Rate: regular rate Rhythm: regular rhythm Heart sounds: no murmurs and normal S1 and S2 GI Palpation (GI): Soft to palpation, nontender, no hepatomegaly and no splenomegaly Auscultation: normal bowel sounds Skin General skin exam: no rashes or lesions noted and dry skin Neuro General: oriented to person, oriented to place and oriented to time Cranial nerves: Yes Equal, round and reactive pupils present Speech: No Abnormal speech present Gait exam (Neuro): Normal gait present Motor exam (neuro): no tremor noted Extrem Right upper extremity: full ROM Left upper extremity: full ROM Right lower extremity: full ROM; no edema Left lower extremity: full ROM; no edema Psych Mental Status: mental status grossly normal Speech and movement: Normal speech and movement present Affect: normal affect Attitude: cooperative Thought process: Normal thought process present Assessment and Plan Assessment & Plan (1) Hypertension: Code(s): I10 - Essential (primary) hypertension Qualifiers: Hypertension type: primary hypertension Qualified Code(s): I10 - Esslinda tial (primary) hypertension Plan: Patient's blood pressure much improved today in office. Will continue current dose of lisinopril hydrochlorothiazide with goal blood pressure remain below 140/90 Again reinforced low-sodium diet. (2) Alcohol use disorder: Code(s): F10.90 - Alcohol use, unspecified, uncomplicated Plan: Has drastically reduced his alcohol intake with the use on Ultrex own 50 mg. He is very happy with the effectiveness of the medication. He reports only drinking 1-2 beers on occasion now. (3) Obese: Code(s): E66.9 - Obesity, unspecified Qualifiers: Body mass index: BMI 32.0-32.9 Obesity classification: adult class 1 (BMI 30 - 34.9) Obesity type: due to excess calories Serious obesity comorbidity presence: without serious comorbidity Qualified Code(s): E66.09 - Other obesity due to excess calories; Z68.32 - Body mass index [BMI] 32.0-32.9, adult Plan: Patient does understand his BMI is over 30 will work on being more physically active and adapting to better eating habits to reduce his weight (4) Borderline high cholesterol: Code(s): E78.9 - Disorder of lipoprotein metabolism, unspecified Plan: Will work on lifestyle modifications to reduce his cholesterol. Has stopped smoking and I congratulated him on this. Goal LDL to be below 130 (5) RED (generalized anxiety disorder): Code(s): F41.1 - Generalized anxiety disorder Plan: Patient's RED-7 score positive for moderate anxiety. Since he has stop drinking uses diet he has gotten much worse. He reports he takes care of his father whom has dementia. He is willing to start SSRI therapy to help reduce his anxiety and panic attacks. He is also willing to start cognitive behavioral therapy. (6) Tobacco dependence: Code(s): F17.200 - Nicotine dependence, unspecified, uncomplicated Plan: Unfortunately started smoking again and does understand he needs to again quit. He reports the stress in his life was his trigger to start smoking again. Orders: Referrals Counseling Referral F41.1 - Generalized anxiety disorder Medications: New escitalopram oxalate (Lexapro) 10 mg PO DAILY 30 days 30 tabs 2RF F41.1 - Generalized anxiety disorder Coding Level of Care Code Est Pt Level 4 (03153) Diagnoses Hypertension I10 Hypertension type: primary hypertension Alcohol use disorder F10.90 Class 1 obesity due to excess calories without serious comorbidity with body mass index (BMI) of 32.0 to 32.9 in adult E66.09; Z68.32 Body mass index: BMI 32.0-32.9 Obesity classification: adult class 1 (BMI 30 - 34.9) Obesity type: due to excess calories Serious obesity comorbidity presence: without serious comorbidity Borderline high cholesterol E78.9 RED (generalized anxiety disorder) F41.1 Tobacco dependence F17.200 Additional Codes RED-7 Assessment Billing - RED-7 Assessment Tool: RED-7 Assessment 65450 ([id number]) Vital Signs *Quality* - CPT code: 30299 - 4-10 Minutes ([id number])
== END 2023-01-26 11:52 | disposition home or self-care (01) ==
PROVIDERS: PCP Physician Assistant; Visit Provider Physician Assistant
DX: I10 Essential (primary) hypertension (principal); E66.09 Other obesity due to excess calories; Z68.32 Body mass index [BMI] 32.0-32.9, adult; F17.210 Nicotine dependence, cigarettes, uncomplicated; F10.90 Alcohol use, unspecified, uncomplicated; E78.9 Disorder of lipoprotein metabolism, unspecified; F41.1 Generalized anxiety disorder
CPT/HCPCS: 99214; 99406

== ENCOUNTER 2023-04-14 06:46 | Outpatient (REF) | payer OTHER, SELFPAY ==
[2023-04-14 07:32] LABS: Alanine Aminotransferase 36 U/L (0-40); Albumin Level 4.6 g/dL (3.5-5.0); Alkaline Phosphatase 78 U/L (39-117); Anion Gap 11 (12-20); Aspartate Amino Transferase 29 U/L (5-37); Bilirubin Total 0.9 mg/dL (0.0-1.0); Blood Urea Nitrogen 11 mg/dL (9-16); Calcium 10.2 mg/dL (8.4-10.2); Carbon Dioxide 27 mmol/L (22-29); Chloride 104 mmol/L (96-108); Cholesterol 198 mg/dL (<200); Estimated Glomerular Filt Rate > 60; Glucose Fasting 105 mg/dL (60-99); HDL Cholesterol 31 mg/dL (>40); LDL Cholesterol Calculated 141 mg/dL (<100); Potassium 3.9 mmol/L (3.3-5.1); Sodium 138 mmol/L (135-145); Total Protein 8.3 g/dL (6.5-8.0); Triglycerides 130 mg/dL (<150)
[2023-04-14 08:38] LABS: Creatinine Urine 158.36 mg/dL; Microalbum/Creatinine Ratio Ur 14.5 ug/mg cr (<30)
== END 2023-04-14 06:47 | disposition home or self-care (01) ==
LOC: HO.LAB 06:46
PROVIDERS: PCP Physician Assistant; Visit Provider Physician Assistant
DX: Z13.1 Encounter for screening for diabetes mellitus (principal); E78.9 Disorder of lipoprotein metabolism, unspecified
CPT/HCPCS: 36415; 80053; 80061; 82043; 82570

== ENCOUNTER 2023-04-22 15:43 | Emergency (ER) | payer OTHER, SELFPAY ==
--- NOTE | ~2023-04-22 | XR_ITS ---
EXAMINATION: XR CHEST 2 VIEW CLINICAL INFORMATION: Cough and shortness of breath COMPARISON: 07/14/2022 TECHNIQUE: PA and lateral views of the chest obtained. FINDINGS: The lungs are clear. There are no pleural effusions. The cardiomediastinal silhouette is normal. XR/XR chest 2V IMPRESSION: No acute cardiopulmonary disease.
[2023-04-22 17:14] VITALS: BP 171/101; PULSE 97; RESP 18; TEMP 36.8; O2SAT 95; BMI 32.7
--- NOTE | 2023-04-22 17:14 | ED.URI ---
HPI - URI/Sore Throat General Chief Complaint: Upper Respiratory Symptoms Stated Complaint: Trouble breathing Time Seen by Provider: 04/22/23 19:02 Source: patient, RN notes reviewed and old records reviewed Mode of arrival: ambulatory Limitations: no limitations History of Present Illness HPI Narrative: 42-year-old male presents for evaluation of cough, shortness of breath. He reports that he is a smoker but quit 3 days ago He states that he has had a cough for the last week He reports intermittent shortness of breath that was worse this morning. He denies any history of asthma or COPD but used his father's nebulizer machine this morning which greatly improved his symptoms Denies any fevers, chills. Denies any leg swelling, chest pain. He does have intermittent right-sided back pain but denies any injure Related Data Previous Rx's Medication Instructions Recorded escitalopram oxalate 10 mg tablet 10 mg PO DAILY 30 days #30 tabs 01/26/23 (Lexapro) lisinopril 20 1 tab PO DAILY 90 days #90 tabs 04/05/23 mg-hydrochlorothiazide 12.5 mg tablet naltrexone 50 mg tablet 50 mg PO DAILY 30 days #30 tabs 04/05/23 amoxicillin 875 mg-potassium 1 tab PO BID 7 days #14 tabs 04/20/23 clavulanate 125 mg tablet benzonatate 200 mg capsule 200 mg PO TID 5 days #15 caps 04/20/23 azithromycin 250 mg tablet See Rx Instructions PO .COMPLEX #6 04/22/23 tabs prednisone 20 mg tablet 40 mg (2 x 20 mg) PO DAILY #10 tabs 04/22/23 Allergies Allergy/AdvReac Type Severity Reaction Status Date / Time coconut Allergy Unknown UNKNOWN Verified 04/22/23 17:14 Review of Systems Constitutional: Constitutional: Denies chills, Denies fever(s), Denies headache(s) and Reports malaise Eyes: Eyes: Denies blurry vision ENT: Denies headache(s) Cardiovascular: Cardiovascular: Denies chest pain and Reports dyspnea Respiratory: Respiratory: Reports cough, Reports dyspnea and Reports wheezing Gastrointestinal: Gastrointestinal: Denies abdominal pain, Denies nausea and Denies vomiting Musculoskeletal: Musculoskeletal: Reports back pain Neurologic: Denies headache(s) Allergic/Immunologic: Allergic/Immunologic: Reports wheezing [facility] Family History Family History Father Diabetes Valvular heart disease Social History Social History Housing: House Alcohol intake: current Alcohol intake frequency: 3 or more drinks per day Alcohol type: beer Patient Tobacco Use Status: Former Tobacco user Quit Date: 10/2022 Tobacco use type: Cigarette e-Cigarette/Vaping Use: Never Used Substance Use Type: Crack/Cocaine and Marijuana Advance Directives: No Advance Directives Information Provided: No service: No Current occupational status: employed 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 Current occupational exposures/hazards: No Cognitive needs: No Hearing needs: No Vision needs: No Physical Exam Vital Signs: Vital Signs: Last Vital Signs Temp 98.3 F 04/22/23 17:14 Pulse 97 04/22/23 17:29 Resp 20 04/22/23 17:29 BP 171/101 H 04/22/23 17:14 Pulse Ox 95 04/22/23 17:14 O2 Del Method Room Air 04/22/23 17:14 BMI result Body Mass Index 32.7 Const: General: healthy appearing, comfortable, no acute distress, alert and awake Nutritional Appearance: well nourished Orientation/consciousness: patient oriented x3 HEENT: Head: Yes normocephalic and Yes atraumatic Eyes: Eyelids: Yes eyelids normal Conjunctivae: conjunctivae normal Sclerae: sclerae normal Corneas: corneas normal Pupils: Equal, round and reactive pupils present EOM: EOMs intact bilaterally Neck: Neck: Yes full ROM Resp: Effort & Inspection: normal respiratory effort, able to speak in complete sentences and not labored Auscultation: not clear to auscultation bilaterally and wheezes (Mild expiratory wheeze throughout) Cardio: Rate: regular rate Rhythm: regular rhythm GI: Inspection: No distended Palpation (GI): Soft to palpation, not firm, nontender, no guarding and not rigid Skin: General skin exam: elasticity normal Neuro: General: patient oriented x3 Cranial nerves: Yes Equal, round and reactive pupils present and Yes Bilaterally intact EOM present Cognition (Neuro): normal cognition Course Course Course Narrative: RME: 42yo M w/PMHx RED, ETOH use, c/o cough w/SOB & difficulty catching breath x1 week, +sx worse on exertion. Started on Augmentin & Tessalon pearls 2 days ago by PCP. +sick contacts Lungs with diffuse exp wheeze EKG, Labs, CXR, Viral testing ordered Full HPI, ROS and PE to be performed by primary ED provider. Medications Administered Discontinued Medications Generic Name Dose Route Start Last Admin Trade Name Freq PRN Reason Stop Dose Admin Albuterol Sulfate 8 puff 04/22/23 17:23 12 17:28 Albuterol Sulfate 90 Mcg 8 Gm Inhaler INHALE 04/22/23 17:24 8 puff ONCE ONE Administration Medical Decision Making Medical Decision Making MDM Narrative: 42-year-old male presents for evaluation of shortness of breath. He reports his cough started 1 week ago. He was given Tessalon Perles and Augmentin by his doctor 2 days ago with no improvement as of yet. The patient is quite wheezy on exam. He likely has undiagnosed COPD due to his tobacco dependence. Patient's labs are significant for a week leukocytosis of 15.3. His CO2 is elevated to 30. This may be related to undiagnosed COPD versus sleep apnea. Chest x-ray is clear, viral swab was negative. Given that he still has a white count and worsening symptoms after being Augmentin for 1 day will add azithromycin and prednisone to his treatment course. His vital signs are stable he does not require admission. Your given additional nebulizer treatment prior to discharge. Patient reports that he has no abuse or all inhaler at home Differential Diagnosis Differential Diagnoses: The differential diagnosis associated with the presentation includes Asthma Bronchitis Pneumonia Upper respiratory infection Influenza COVID-19 Admission/Observation Consideration of admission/observation: Escalation of care including admission/observation considered Patient presents for evaluation shortness of breath, was concerned formation was vital signs have remained stable throughout the stay Lab Data [facility] Lab Attestation statement: I reviewed the patient's lab results. As above 04/22/23 17:56 04/22/23 17:56 Labs: Lab Results 04/22/23 Range/Units 17:56 WBC 15.3 H (4.8-10.8) X10*3/uL RBC 5.41 (4.60-5.80) X10*6/uL Hgb 16.5 (14.0-18.0) g/dl Hct 49.1 (42.0-52.0) % MCV 90.8 (80.0-98.0) fL MCH 30.5 (27.0-33.0) pg MCHC 33.6 (31.0-36.0) g/dl RDW 13.5 (11.0-16.0) % Plt Count 242 D (160-400) X10*3/uL MPV 10.4 (9.4-12.4) fL Immature Gran % (Auto) 0.3 (0.0-0.4) % Neut % (Auto) 58.9 (45-73) % Lymph % (Auto) 21.9 (20-40) % [place] % (Auto) 9.9 (2-11) % Eos % (Auto) 8.2 H (0-4) % Baso % (Auto) 0.8 (0-2) % Lymph # (Auto) 3.3 (1.2-4.9) X10*3/uL [place] # (Auto) 1.5 H (0.1-1.2) X10*3/uL Eos # (Auto) 1.3 H (0.0-0.4) X10*3/uL Baso # (Auto) 0.1 (0.0-0.2) X10*3/uL Abs Immat Gran (auto) 0.04 H (0.00-0.03) X10*3/uL Absolute Neuts (auto) 9.0 H (2.0-8.3) x10*3/uL Absolute Nucleated RBC 0.000 (0.0-0.012) X10*3/uL Nucleated RBC % (auto) 0.0 (0.0-0.2) /100WBC Smear Tech's Comments VERIFIED PT 12.2 (11.1-13.3) SEC INR 1.0 (0.9-1.1) Sodium 140 (135-145) mmol/L Potassium 3.6 (3.3-5.1) mmol/L Chloride 100 (96-108) mmol/L Carbon Dioxide 30 H (22-29) mmol/L Anion Gap 14 (12-20) BUN 9 (9-16) mg/dL Creatinine 0.99 (0.5-1.4) mg/dL Estim Creat Clear Calc 104.4 Estimated GFR > 60 Random Glucose 112 (60-115) mg/dL Calcium 9.7 (8.4-10.2) mg/dL Total Bilirubin 0.4 (0.0-1.0) mg/dL Direct Bilirubin 0.2 (0.0-0.5) mg/dL AST 23 (5-37) U/L ALT 19 (0-40) U/L Alkaline Phosphatase 79 (39-117) U/L Troponin I High Sens < 2.7 D (<3.5-35.0) ng/L Total Protein 8.3 H (6.5-8.0) g/dL Albumin 4.4 (3.5-5.0) g/dL Influenza Type A (PCR) NEGATIVE (Negative) Influenza Type B (PCR) NEGATIVE (Negative) RSV RNA Qual (PCR) NEGATIVE (Negative) SARS-CoV-2 RNA (RT-PCR) NEGATIVE (Negative) Independent Interpretation I performed an independent interpretation of an: Plain X-Ray (No focal infiltrates) Discharge Plan Discharge Clinical Impression: Acute upper respiratory infection Patient Disposition: Home, Self-Care Instructions: Upper Respiratory Infection (ED) Additional Instructions: You may continue taking the Augmentin. Add azithromycin and prednisone as directed for upper respiratory infection. You likely have undiagnosed COPD Follow-up with your primary doctor Return for new or worsening symptoms Prescriptions: New azithromycin 250 mg tablet See Rx Instructions .ROUTE .COMPLEX Qty: 6 0RF Rx Instructions: For 250 mg dose pack: take 500 mg today (day 1), then 250 mg for 4 days (days 2-5) prednisone 20 mg tablet 40 mg PO DAILY Qty: 10 0RF No Action lisinopril-hydrochlorothiazide 20-12.5 mg tablet 1 tab PO DAILY 90 Days Qty: 90 1RF naltrexone 50 mg tablet 50 mg PO DAILY 30 Days Qty: 30 3RF amoxicillin-pot clavulanate 875-125 mg tablet 1 tab PO BID 7 Days Qty: 14 0RF benzonatate 200 mg capsule 200 mg PO TID 5 Days Qty: 15 0RF escitalopram oxalate [Lexapro] 10 mg tablet 10 mg PO DAILY 30 Days Qty: 30 2RF
--- NOTE | 2023-04-22 17:16 | ECG_ITS ---
Test Reason : TROUBLE BREATHING Blood Pressure : / mmHG Vent. Rate : 101 BPM Atrial Rate : 101 BPM P-R Int : 144 ms QRS Dur : 086 ms QT Int : 360 ms P-R-T Axes : 027 049 010 degrees QTc Int : 466 ms Sinus tachycardia Otherwise normal ECG When compared with ECG of 14-JUL-2022 10:50, No significant change was found Referred By: Tanisha Cancino Electronically Signed By:BIENVENIDO ADAMS MD
[2023-04-22] MEDS: Albuterol Sulfate 90 MCG 8 GM INHALER 8 PUFF INHALE (17:28)
[2023-04-22 17:29] VITALS: PULSE 97; RESP 20; O2SAT 95
[2023-04-22 18:10] LABS: Basophils Absolute Auto 0.1 X10*3/uL (0.0-0.2); Basophils Percent Auto 0.8 % (0-2); Eosinophils Absolute Auto 1.3 X10*3/uL (0.0-0.4); Eosinophils Percent Auto 8.2 % (0-4); Hematocrit 49.1 % (42.0-52.0); Hemoglobin 16.5 g/dl (14.0-18.0); Imm Gran Abs Auto 0.04 X10*3/uL (0.00-0.03); Imm Gran Pct Auto 0.3 % (0.0-0.4); Lymphocytes Absolute Auto 3.3 X10*3/uL (1.2-4.9); Lymphocytes Percent Auto 21.9 % (20-40); MANUAL DIFF FLAG SCAN; Mean Corpuscular HGB Conc 33.6 g/dl (31.0-36.0); Mean Corpuscular Hemoglobin 30.5 pg (27.0-33.0); Mean Corpuscular Volume 90.8 fL (80.0-98.0); Mean Platelet Volume 10.4 fL (9.4-12.4); Monocytes Absolute Auto 1.5 X10*3/uL (0.1-1.2); Monocytes Percent Auto 9.9 % (2-11); Neutrophils Percent Auto 58.9 % (45-73); Platelet Count 242 X10*3/uL (160-400); Red Blood Count 5.41 X10*6/uL (4.60-5.80); Red Cell Distribution Width 13.5 % (11.0-16.0); SCAN SMEAR FLAG 1; White Blood Count 15.3 X10*3/uL (4.8-10.8)
[2023-04-22 18:15] LABS: Prothrombin Time 12.2 SEC (11.1-13.3)
[2023-04-22 18:26] LABS: Alanine Aminotransferase 19 U/L (0-40); Albumin Level 4.4 g/dL (3.5-5.0); Alkaline Phosphatase 79 U/L (39-117); Anion Gap 14 (12-20); Aspartate Amino Transferase 23 U/L (5-37); Bilirubin Direct 0.2 mg/dL (0.0-0.5); Bilirubin Total 0.4 mg/dL (0.0-1.0); Blood Urea Nitrogen 9 mg/dL (9-16); Calcium 9.7 mg/dL (8.4-10.2); Carbon Dioxide 30 mmol/L (22-29); Chloride 100 mmol/L (96-108); Creatinine Clr Calc Pharmacy 104.4; Estimated Glomerular Filt Rate > 60; Glucose Random 112 mg/dL (60-115); Potassium 3.6 mmol/L (3.3-5.1); Sodium 140 mmol/L (135-145); Total Protein 8.3 g/dL (6.5-8.0)
[2023-04-22 18:38] LABS: SLIDE REVIEW VERIFIED
[2023-04-22 18:46] LABS: Troponin-I High Sensitivity < 2.7 ng/L (<3.5-35.0)
[2023-04-22 18:52] LABS: Influenza A PCR NEGATIVE (Negative); Influenza B PCR NEGATIVE (Negative); Resp Syncy Virus RNA Qual PCR NEGATIVE (Negative); SARS COV2 PCR INHOUSE NEGATIVE (Negative)
[2023-04-22] MEDS: predniSONE 20 MG TABLET 40 MG PO (19:23)
[2023-04-22] MEDS: Albuterol Sulfate 2.5 MG, Albuterol/Iprat 2.5/0.5MG 3 ML 3 ML INHALE (19:28)
[2023-04-22 19:29] VITALS: PULSE 97; RESP 18; O2SAT 95
== END 2023-04-22 20:01 | disposition home or self-care (01) ==
PROVIDERS: Physician Assistant; Emergency Provider Internal Medicine; PCP Physician Assistant
DX: J06.9 Acute upper respiratory infection, unspecified (principal); R06.02 Shortness of breath; R05.9 Cough, unspecified; F17.210 Nicotine dependence, cigarettes, uncomplicated; Z20.822 Contact with and (suspected) exposure to COVID-19; Z20.828 Contact with and (suspected) exposure to other viral communicable diseases; Z71.6 Tobacco abuse counseling
CPT/HCPCS: 0241U; 36415; 71046; 80048; 80076; 84484; 85025; 85610; 93005; 94640; 99284

== ENCOUNTER → 2023-04-22 17:16 | Outpatient (BNV) | payer OTHER, SELFPAY | PROVIDERS: Emergency Provider Internal Medicine; PCP Physician Assistant; Visit Provider Internal Medicine Cardiovascular Disease | DX: R00.0 Tachycardia, unspecified (principal); R06.00 Dyspnea, unspecified | CPT/HCPCS: 93010 ==

== ENCOUNTER 2023-04-28 07:41 | Outpatient (AMB) | payer OTHER, SELFPAY ==
--- NOTE | 2023-04-28 07:53 | A.OFFPC_ITS ---
Vital Signs 04/28/23 07:56 Height 5 ft 7 in Weight 212 lb BMI 33.2 BP 140/96 H Blood Pressure Location Lt brachial Position Sitting Pulse 86 Pulse Source Pulse Oximeter Pulse Oximetry (%) 97 Oxygen Delivery Method Room Air Intake Visit Reasons: 3 MONTH F/U Intake Note: Patient here for a 3 month follow up [place] Required: No Accompanied by: Self / Same As Patient Allergies coconut Allergy (Unknown, Verified 04/28/23 08:06) UNKNOWN Medication List - Last Reconciled 04/28/23 by Neal Gann PA-C escitalopram oxalate (Lexapro) 10 mg PO DAILY 30 days lisinopril-hydrochlorothiazide 20-12.5 mg 1 tab PO DAILY 90 days naltrexone 50 mg PO DAILY 30 days Tobacco use date assessed: 11/12/22 Dental Screening Dental Screen Date: 04/28/23 Did you have a dental visit in the last 12 months?: No Did you have a dental problem in the last 6 months where you did not have access to dental care?: No Was dental information given to patient?: Patient has dentist HPI 3 MONTH F/U HPI Details Patient is a 42-year-old male here today for a follow-up visit. Patient has a past medical history significant for hypertension, taboacoo use disorder, alcohol dependency.. Recently seen at the [place] ER for acute upper respiratory infection. On exam in the ER was wheezy and was started on prednisone and azithromycin. Now feeling a bit better. ? Undiagnosed COPD. He does understand he needs to quit smoking. He is willing to try Chantix. . Hypertension: Blood pressure today slightly elevated though much improved previous. Today patients blood pressure is acceptable. .. Alcohol use disorder: Has drastically reduced his alcohol intake. Continues on all trucks own :Labs reviewed labs with patient and noted a slightly elevated fasting glucose. Laboratory Tests 07/14/22 04/14/23 04/22/23 11:42 07:08 17:56 WBC 15.3 H RBC 4.63 5.41 Creatinine 1.21 AST 48 H ALT 46 H Troponin I High Se ns 5.7 Cholesterol 198 LDL Cholesterol, C alc 141 H PFSH Surgical History No pertinent past surgical history Family History Father Diabetes Valvular heart disease Social History Housing: House Alcohol intake: current Alcohol intake frequency: 3 or more drinks per day Alcohol type: beer Patient Tobacco Use Status: Former Tobacco user Quit Date: 10/2022 Tobacco use type: Cigarette e-Cigarette/Vaping Use: Never Used Substance Use Type: Crack/Cocaine and Marijuana service: No Current occupational status: employed 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 Remi Ovalles, Irma Webb, James Morataya and colleagues, with an educational marck from [employer]. Review of Systems Const Denies headache(s) Eyes Denies loss of vision ENT Denies vertigo, Denies dizziness, Denies headache(s) and Denies sore throat Card Denies chest pain, Denies leg edema and Denies lightheadedness Resp Denies cough, Denies hemoptysis and Denies wheezing GI Denies abdominal pain, Denies melena, Denies constipation, Denies diarrhea and Denies vomiting Denies dysuria, Denies urinary frequency and Denies urinary urgency Musc Denies arthralgias, Denies joint swelling, Denies numbness and Denies tingling Neuro Denies Abnormal speech present, Denies behavioral changes, Denies vertigo, Denies dizziness, Denies headache(s), Denies loss of vision, Denies memory loss, Denies numbness and Denies tingling Psych Denies anxiety, Denies behavioral changes, Denies depression, Denies memory loss and Denies panic attacks Ubaldo/Lymph Denies easy bleeding and Denies easy bruising Aller/Immun Denies wheezing Physical exam (Primary Care) Vital Signs: Last Vital Signs Pulse 86 04/28/23 07:56 BP 140/96 H 04/28/23 07:56 Pulse Ox 97 04/28/23 07:56 Oxygen Delivery Method Room Air 04/28/23 07:56 BMI result Body Mass Index 33.2 BMI Assessment/Plan discussion: High Tobacco/Smoking Status: Tobacco use Status Tobacco use date assessed 11/12/22 04/28/23 07:55 Patient Tobacco Use Status Former Tobacco user 04/28/23 07:55 Tobacco use type Cigarette 04/28/23 07:55 e-Cigarette/Vaping Use Never Used 04/28/23 07:55 Are you ready to quit: Yes Tobacco cessation counseling provided: Yes Items discussed: Nicotine replacement and [employer]uitWorks Relapse Prevention: discussed the importance of a supportive environment, discussed negative mood or depression after quitting, weight gain after smoking is common and discussed dietary, exercise and/or lifestyle changes Number of minutes spent counselin CPT code: 85834 - 4-10 Minutes Thrive Assessment: Date of Thrive Assessment Date Thrive assessed 01/26/23 04/28/23 07:55 Const Other: Obese General: healthy appearing, no acute distress, alert and awake Nutritional Appearance: well nourished Orientation/consciousness: oriented to person, oriented to place and oriented to time HENMT Ears: TM's normal bilaterally General nose exam: Normal nasal mucous membranes and turbinates present Eyes Conjunctivae: conjunctivae normal Sclerae: sclerae normal Pupils: Equal, round and reactive pupils present Neck Neck: Yes no lymphadenopathy and Yes no JVD Thyroid: Thyroid normal Carotids: no bruits Resp Effort & Inspection: normal respiratory effort and not tachypneic Auscultation: no crackles, no rales, no rhonchi and no wheezes Cardio Rate: regular rate Rhythm: regular rhythm Heart sounds: no murmurs and normal S1 and S2 GI Palpation (GI): Soft to palpation, nontender, no hepatomegaly and no splenomegaly Auscultation: normal bowel sounds Skin General skin exam: no rashes or lesions noted and dry skin Neuro General: oriented to person, oriented to place and oriented to time Cranial nerves: Yes Equal, round and reactive pupils present Speech: No Abnormal speech present Gait exam (Neuro): Normal gait present Motor exam (neuro): no tremor noted Extrem Right upper extremity: full ROM Left upper extremity: full ROM Right lower extremity: full ROM; no edema Left lower extremity: full ROM; no edema Psych Mental Status: mental status grossly normal Speech and movement: Normal speech and movement present Affect: normal affect Attitude: cooperative Thought process: Normal thought process present Assessment and Plan Assessment & Plan (1) Hypertension: Code(s): I10 - Essential (primary) hypertension Qualifiers: Hypertension type: primary hypertension Qualified Code(s): I10 - Essential (primary) hypertension Plan: Patient's blood pressure much improved today in office. Will continue current dose of lisinopril hydrochlorothiazide with goal blood pressure remain below 140/90 Again reinforced low-sodium diet. (2) Obese: Code(s): E66.9 - Obesity, unspecified Qualifiers: Obesity type: due to excess calories Obesity classification: adult class 1 (BMI 30 - 34.9) Serious obesity comorbidity presence: without serious comorbidity Body mass index: BMI 32.0-32.9 Qualified Code(s): E66.09 - Other obesity due to excess calories; Z68.32 - Body mass index [BMI] 32.0-32.9, adult Plan: Patient does understand his BMI is over 30 will work on being more physically active and adapting to better eating habits to reduce his weight (3) Borderline high cholesterol: Code(s): E78.9 - Disorder of lipoprotein metabolism, unspecified Plan: Will work on lifestyle modifications to reduce his cholesterol. Goal LDL to be below 130 (4) RED (generalized anxiety disorder): Code(s): F41.1 - Generalized anxiety disorder Plan: Continues on Lexapro 10 mg with good effect on reducing his anxiety. Also reducing his drinking has helped to reduce anxiety as well. (5) Tobacco dependence: Code(s): F17.200 - Nicotine dependence, unspecified, uncomplicated Plan: Unfortunately started smoking again and does understand he needs to again quit. He reports the stress in his life was his trigger to start smoking again. He would like to try generic Chantix to help stop smoking. (6) SOB (shortness of breath): Code(s): R06.02 - Shortness of breath Plan: Has been was some shortness of breath and wheeze since having upper respiratory viral illness. Has been smoking the last 10 years and is willing to quit. ? COPD and will send for pulmonary function testing for confirm diagnosis. (7) Impaired glucose metabolism: Code(s): R73.09 - Other abnormal glucose Plan: Noted slightly elevated fasting blood sugar on most recent labs. Likely due to being on well recently. Will recheck in the next 6 months before his annual physical. Advised on low carbohydrate diet. Orders: Orders PFT pulmonary function test Today R06.02 - Shortness of breath Hemoglobin A1c Today I10 - Essential (primary) hypertension, R73.09 - Other abnormal glucose Comprehensive [place]. Panel Fast Today I10 - Essential (primary) hypertension, R73.09 - Other abnormal glucose Lipid Panel Today E78.9 - Disorder of lipoprotein metabolism, unspecified, I10 - Essential (primary) hypertension Microalbumin, Random (w Creat) Today E78.9 - Disorder of lipoprotein metabolism, unspecified, I10 - Essential (primary) hypertension Medications: New albuterol sulfate 90 mcg/actuation 1 inh inhalation QID 30 days PRN 8.5 grams 0RF shortness of breath or wheezing R06.02 - Shortness of breath varenicline 0.5 mg PO; Take 0.5 mg qd x 3 days, then 0.5 mg b.i.d. x4 days 7 days 11 tabs 0RF F17.200 - Nicotine dependence, unspecified, uncomplicated varenicline 1 mg PO BID 28 days 56 tabs 1RF F17.200 - Nicotine dependence, unspecified, uncomplicated Changed From escitalopram oxalate (Lexapro) 10 mg PO DAILY 30 days 30 tabs 2RF F41.1 - Generalized anxiety disorder To escitalopram oxalate (Lexapro) 10 mg PO DAILY 90 days 90 tabs 2RF F41.1 - Generalized anxiety disorder Coding Level of Care Code Est Pt Level 4 (59086) Diagnoses Hypertension I10 Hypertension type: primary hypertension Class 1 obesity due to excess calories without serious comorbidity with body mass index (BMI) of 32.0 to 32.9 in adult E66.09; Z68.32 Obesity type: due to excess calories Obesity classification: adult class 1 (BMI 30 - 34.9) Serious obesity comorbidity presence: without serious comorbidity Body mass index: BMI 32.0-32.9 Borderline high cholesterol E78.9 RED (generalized anxiety disorder) F41.1 Tobacco dependence F17.200 SOB (shortness of breath) R06.02 Impaired glucose metabolism R73.09 Additional Codes Vital Signs *Quality* - CPT code: 95440 - 4-10 Minutes ([id number])
[2023-04-28 07:56] VITALS: BP 140/96; PULSE 86; O2SAT 97; BMI 33.2
== END 2023-04-28 08:21 | disposition home or self-care (01) ==
PROVIDERS: PCP Physician Assistant; Visit Provider Physician Assistant
DX: I10 Essential (primary) hypertension (principal); E66.09 Other obesity due to excess calories; Z68.32 Body mass index [BMI] 32.0-32.9, adult; E78.9 Disorder of lipoprotein metabolism, unspecified; F41.1 Generalized anxiety disorder; F17.200 Nicotine dependence, unspecified, uncomplicated; R06.02 Shortness of breath; R73.09 Other abnormal glucose
CPT/HCPCS: 99214; 99406

== ENCOUNTER → 2023-07-28 08:35 | Outpatient (BNVA) | payer SELFPAY | PROVIDERS: PCP Physician Assistant; Visit Provider Internal Medicine | DX: Z02.79 Encounter for issue of other medical certificate (principal) ==

== ENCOUNTER → 2023-08-27 08:16 | Outpatient (BNVA) | payer SELFPAY | PROVIDERS: PCP Physician Assistant; Visit Provider Internal Medicine | DX: Z02.79 Encounter for issue of other medical certificate (principal) ==

== ENCOUNTER 2023-10-28 08:39 | Outpatient (AMB) | payer OTHER, SELFPAY ==
--- NOTE | 2023-10-28 08:42 | A.OFFPC_ITS ---
Vital Signs 10/28/23 08:43 Height 5 ft 7 in Weight 214 lb BMI 33.5 BP 136/80 Blood Pressure Location Lt brachial Position Sitting Pulse 95 Pulse Source Pulse Oximeter Pulse Oximetry (%) 96 Oxygen Delivery Method Room Air Intake Visit Reasons: Annual Exam Intake Note: Patient here for a physical exam Records Coordinator Required: No Sales And Events Coordinator: Not Required per policy Accompanied by: Self / Same As Patient Allergies coconut Allergy (Unknown, Verified 10/28/23 09:05) UNKNOWN Medication List - Last Reconciled 10/28/23 by Neal Gann PA-C albuterol sulfate 90 mcg/actuation 1 inh inhalation QID PRN 30 days lisinopril-hydrochlorothiazide 20-12.5 mg 1 tab PO DAILY 90 days Tobacco use date assessed: 10/28/23 Dental Screening Dental Screen Date: 10/28/23 Did you have a dental visit in the last 12 months?: No Did you have a dental problem in the last 6 months where you did not have access to dental care?: No Was dental information given to patient?: Patient has dentist HPI Annual Exam HPI Details Patient is a 43-year-old male here today for routine annual physical. Patient has a past medical history significant for hypertension, taboacoo use disorder, alcohol dependency.. . Hypertension: Blood pressure acceptable today in office. He continues on lisinopril hydrochlorothiazide with good effect. Today patients blood pressure is acceptable. .. Anxiety: Has not been taking Lexapro as he has been having trouble getting this through the pharmacy. He does report having some elevated heart rates as of late which could be related to his anxiety. He is willing to start alternative SSRI therapy. .. Former smoker: Has completely quit smoking cigarettes. Does report smoking more marijuana. .. Alcohol use disorder: Has drastically reduced his alcohol intake., only drinking a few beers on occasion. 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 1. Little interest or pleasure in doing things: not at all 2. Feeling down, depressed, or hopeless: not at all 3. Trouble falling or staying asleep, or sleeping too much: not at all 4. Feeling tired or having little energy: not at all 5. Poor appetite or overeating: not at all 6. Feeling bad about yourself - or that you are a failure or have let yourself or your family down: not at all 8. Moving or speaking so slowly that other people could have noticed. Or the opposite - being so fidgety or restless that you have been moving around a lot more than usual: not at all 9. Thoughts that you would be better off or of hurting yourself in some way: not at all Depression Screening Interpretation: Negative Depression Screening Done: Yes [id number] - PHQ-9 Billing: Yes Source: Developed by Drs. Remi Ovalles, Irma Webb, James Morataya and colleagues, with an educational marck from [employer]. Thrive Questionnaire Date Thrive assessed: 10/28/23 I am a: Patient What is your living situation today?: I have a steady place to live Within the past 12 months, did the food you bought not last and you didn't have the money to get more?: Never true Within the past 12 months, did you worry whether your food would run out before you got money to buy more?: Never true Do you have trouble paying for medicines?: No Do you have trouble getting transportation to medical appointments?: No Do you have trouble paying your heating and electricity bill?: No Do you have trouble taking care of your child, family member or friend?: No Do you have trouble with day-to-day activities such as bathing, preparing meals, shopping, managing finances, etc.?: No Are you currently unemployed and looking for a job?: No Are you interested in more education?: No Please select the resources that you would like help with: None Currently or been in a relationship where the following occur: No concerns reported THRIVE Score: 0 AUDIT C Alcohol Use Questionnaire (AUDIT-C) 1. How often do you have a drink containing alcohol?: Never Total Score: 0 RED-7 AMB Questionnaire RED-7 Date RED - 7 assessed: 10/28/23 Feeling nervous, anxious, or on edge: 0 = Not at all Not being able to stop or control worryin = Not at all Worrying too much about different things: 0 = Not at all Trouble relaxin = Not at all Being so restless that it is hard to sit still: 0 = Not at all Becoming easily annoyed or irritable: 0 = Not at all Feeling afraid as if something awful might happen: 0 = Not at all Total RED-7 score (0-4 normal; 5-9 mild; 10-14 moderate; 15-21 severe): 0 Source: Developed by Drs. Remi Ovalles, Irma Webb, James Morataya and colleagues, with an educational marck from [employer]. RED-7 Assessment Billing RED-7 Assessment Tool: RED-7 Assessment 01390 Review of Systems Const Denies body aches, Denies chills, Denies excessive sweating, Denies fatigue, Denies fever(s) and Denies headache(s) Eyes Denies blurry vision ENT Denies dysphagia, Denies vertigo, Denies dizziness, Denies headache(s), Denies hearing loss and Denies tinnitus Card Denies chest pain, Denies chest pain with activity, Denies syncope, Denies irregular heart rhythm and Denies dyspnea Resp Denies chest congestion, Denies cough, Denies hemoptysis, Denies dyspnea and Denies wheezing GI Denies abdominal pain, Denies melena, Denies hematochezia, Denies coffee ground emesis, Denies dysphagia, Denies diarrhea, Denies nausea and Denies vomiting Denies difficulty urinating, Denies dysuria, Denies urinary frequency, Denies urinary hesitancy and Denies urinary urgency Musc Denies arthralgias, Denies limited range of motion, Denies muscle cramps and Denies muscle weakness Skin/Breast Denies rash and Denies skin ulcer Neuro Denies Abnormal speech present, Denies confusion, Denies vertigo, Denies dizziness, Denies syncope, Denies headache(s), Denies memory loss and Denies seizure-like activity Psych Denies anxiety, Denies confusion, Denies depression, Denies memory loss, Denies panic attacks and Denies paranoia Endo Denies excessive sweating, Denies fatigue, Denies flushing, Denies polydipsia and Denies polyuria Aller/Immun Denies wheezing Physical exam (Primary Care) Vital Signs: Last Vital Signs Pulse 95 10/28/23 08:43 BP 136/80 10/28/23 08:43 Pulse Ox 96 10/28/23 08:43 Oxygen Delivery Method Room Air 10/28/23 08:43 BMI result Body Mass Index 33.5 Tobacco/Smoking Status: Tobacco use Status Tobacco use date assessed 10/28/23 10/28/23 08:44 Patient Tobacco Use Status Former Tobacco user 10/28/23 09:09 Tobacco use type Cigarette 10/28/23 09:09 e-Cigarette/Vaping Use Never Used 10/28/23 09:09 Depression Screening Interpretation: Negative Thrive Assessment: Date of Thrive Assessment Date Thrive assessed 10/28/23 10/28/23 08:44 Currently or been in a relationship where the following occur: No concerns reported Const General: cooperative, comfortable, no acute distress, alert and awake; No confusion Orientation/consciousness: oriented to person, oriented to place, patient oriented x3 and No confusion HENMT Head: Yes normocephalic Ears: external ears normal and TM's normal bilaterally Face and sinus: No sinus tenderness Mouth: Normal oral and palatal mucosa present and tongue normal Teeth and gingiva: dentition normal and gingiva normal Throat: Yes posterior oropharynx normal, Yes tonsils normal and Yes uvula midline Eyes Conjunctivae: conjunctivae normal Sclerae: sclerae normal Pupils: Equal, round and reactive pupils present EOM: EOMs intact bilaterally Direct Ophthalmoscopy: No no photophobia Neck Neck: Yes no lymphadenopathy, No tender and Yes no JVD Thyroid: Thyroid normal Carotids: no bruits Chest Chest palpation & inspection: no tenderness Resp Effort & Inspection: normal respiratory effort, no audible wheezes, not labored and no stridor Auscultation: no crackles, no rales, no rhonchi and no wheezes Cardio Jugular venous distension: no JVD Rate: regular rate, not bradycardic and not tachycardic Rhythm: regular rhythm Bruits: no carotid bruits Peripheral pulses: Peripheral pulses 2+ throughout GI Inspection: Yes normal to inspection, No abdominal wall ecchymosis and No visible herniation Palpation (GI): Soft to palpation, nontender, no guarding, not rigid and No hepatosplenomegaly present Auscultation: normoactive bowel sounds General: Yes no CVA tenderness Back/Spine/Pelvis Back: no CVA tenderness and No back tenderness Cervical Spine: cervical ROM normal Thoracic/Lumbar Spine: thoracic and lumbar spine normal to inspection, straight leg raise negative bilaterally, No thoraco-lumbar ROM limited and No lumbar spinal tenderness Skin Lesions: no lesions Rashes: no rashes Wounds: no wounds Neuro General: oriented to person, oriented to place, patient oriented x3, CN's II-XI intact bilaterally and No confusion Cranial nerves: Yes Equal, round and reactive pupils present and Yes Normal accommodation reflex present Cognition (Neuro): normal cognition Speech: No Abnormal speech present Gait exam (Neuro): Normal gait present Motor exam (neuro): 5/5 motor strength present throughout Extrem Right upper extremity: full ROM; no cyanosis Left upper extremity: full ROM; no cyanosis Right lower extremity: no edema Left lower extremity: no edema Psych Appearance: grossly normal Mental Status: mental status grossly normal Affect: normal affect Attitude: cooperative Thought process: Normal thought process present Assessment and Plan Assessment & Plan (1) Hypertension: Code(s): I10 - Essential (primary) hypertension Qualifiers: Hypertension type: primary hypertension Qualified Code(s): I10 - Essential (primary) hypertension Plan: Patient's blood pressure acceptable today in office.. Will continue current dose of lisinopril hydrochlorothiazide with goal blood pressure remain below 140/90 Again reinforced low-sodium diet. (2) Borderline high cholesterol: Code(s): E78.9 - Disorder of lipoprotein metabolism, unspecified Plan: Will work on lifestyle modifications to reduce his cholesterol. Goal LDL to be below 130 (3) RED (generalized anxiety disorder): Code(s): F41.1 - Generalized anxiety disorder Plan: Patient has been off Lexapro due to availability at pharmacy. He would like to restart SSRI therapy. Will start Celexa 10 mg. (4) Impaired glucose metabolism: Code(s): R73.09 - Other abnormal glucose Plan: Noted slightly elevated fasting blood sugar on most recent labs. Likely due to being on well recently. Will recheck in the next 6 months before his annual physical. Advised on low carbohydrate diet. (5) Former smoker: Code(s): Z87.891 - Personal history of nicotine dependence Plan: Has quit smoking. Does report smoking lot more marijuana Congratulated him on quitting smoking cigarettes. Orders: Orders TDaP Immunization Today Z23 - Encounter for immunization Medications: New citalopram (Celexa) 10 mg PO DAILY 90 tabs 1RF F41.1 - Generalized anxiety disorder Boostrix Tdap (diphth,pertus(acell),tetanus) 0.5 mL IM ONCE 0.5 mL 0RF NS Z23 - Encounter for immunization Patient Instructions: Goal: Blood pressure to remain below 140/90 Barriers: Adherence to physical activity and healthy eating habits Coding Level of Care Code Est Pt Prev Care 40-64y(35856) Diagnoses Hypertension I10 Hypertension type: primary hypertension Borderline high cholesterol E78.9 RED (generalized anxiety disorder) F41.1 Impaired glucose metabolism R73.09 Former smoker Z87.891 Additional Codes RED-7 Assessment Billing - RED-7 Assessment Tool: RED-7 Assessment [id number] ([id number])
[2023-10-28 08:43] VITALS: BP 136/80; PULSE 95; O2SAT 96; BMI 33.5
== END 2023-10-28 09:22 | disposition home or self-care (01) ==
LOC: HO.HMGH 08:39
PROVIDERS: PCP Physician Assistant; Visit Provider Physician Assistant
DX: Z00.00 Encounter for general adult medical examination without abnormal findings (principal); I10 Essential (primary) hypertension; E78.9 Disorder of lipoprotein metabolism, unspecified; Z23 Encounter for immunization; F41.1 Generalized anxiety disorder; R73.09 Other abnormal glucose; Z87.891 Personal history of nicotine dependence
CPT/HCPCS: 90471; 90715; 99396

== ENCOUNTER 2024-03-15 09:01 | Outpatient (AMB) | payer OTHER, SELFPAY ==
--- NOTE | 2024-03-15 09:05 | MHC.PC.OV ---
Vital Signs 03/15/24 09:06 Height 5 ft 7 in Weight 185 lb BMI 29.0 BP 130/92 H Blood Pressure Location Lt brachial Position Sitting Pulse 95 Pulse Source Pulse Oximeter Pulse Oximetry (%) 97 Oxygen Delivery Method Room Air Intake Visit Reasons: [facility] 03/06 trouble breathing [employer] Required: No Accompanied by: Significant Other Allergies coconut Allergy (Unknown, Verified 03/15/24 09:08) UNKNOWN Tobacco use date assessed: 10/28/23 Dental Screening Dental Screen Date: 10/28/23 HPI HPI Comments History of Present Illness Details 43 y/o male patient who presents to the clinic for HDF. He was admitted at [facility] on 03/06/24 due to COPD/ASTHMA exacerbation. He was discharged home on 03/07/24 on stable condition. He was told that he needed to f/u with Pulmonology for breathing testing. He was started on Breo daily inhaler. He is currently finishing up Prednisone Taper. Pt also c/o feeling anxious, and currently takes Citalopram. He believes the dosing is not enough, he continues to feel very anxious and stressed. 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 How many drinks containing alcohol do you have on a typical day when you are drinking?: 1 or 2 3. How often do you have six or more drinks on one occasion?: Less than monthly Total Score: 1 RED-7 AMB Questionnaire RED-7 Date RED - 7 assessed: 10/28/23 Source: Developed by Drs. Remi Ovalles, Irma Wbeb, James Morataya and colleagues, with an educational marck from [employer]. Review of Systems Const All systems reviewed & are unremarkable except as noted in HPI and below Physical exam (Primary Care) Vital Signs: Last Vital Signs Pulse 95 03/15/24 09:06 BP 130/92 H 03/15/24 09:06 Pulse Ox 97 03/15/24 09:06 Oxygen Delivery Method Room Air 03/15/24 09:06 BMI result Body Mass Index 29.0 Tobacco/Smoking Status: Tobacco use Status Tobacco use date assessed 10/28/23 03/15/24 09:10 Patient Tobacco Use Status Former Tobacco user 03/15/24 09:10 Tobacco use type Cigarette 03/15/24 09:10 e-Cigarette/Vaping Use Never Used 03/15/24 09:10 Thrive Assessment: Date of Thrive Assessment Date Thrive assessed 10/28/23 03/15/24 09:10 Const General: cooperative and no acute distress Orientation/consciousness: patient oriented x3 Resp Effort & Inspection: normal respiratory effort and able to speak in complete sentences Auscultation: no crackles, no rales, no rhonchi and wheezes inspiratory wheezes (Mild) Cardio Heart sounds: S1 normal heart sound present and S2 normal heart sound present Neuro General: patient oriented x3 Coding Level of Care Code Est Pt Level 4 (48594) Diagnoses RED (generalized anxiety disorder) F41.1 SOB (shortness of breath) R06.02 COPD with acute exacerbation J44.1 Time Spent (min) 20 Assessment & Plan Assessment & Plan (1) RED (generalized anxiety disorder): Code(s): F41.1 - Generalized anxiety disorder Category: Medical Plan: Managed by PCP. Currently takes Citalopram Advised Pt to f/u with PCP regarding med changes. (2) SOB (shortness of breath): Code(s): R06.02 - Shortness of breath Category: Medical Plan: Ordered Pulmonology referral (3) COPD with acute exacerbation: Code(s): J44.1 - Chronic obstructive pulmonary disease with (acute) exacerbation Plan: Ordered Pulmonology referral Orders: Referrals Pulmonology Referral J44.1 - Chronic obstructive pulmonary disease with (acute) exacerbation, R06.02 - Shortness of breath Medications: New fluticasone furoate-vilanterol 50-25 mcg/dose (Breo Ellipta) 1 inh inhalation ONCE 60 ea 0RF J44.1 - Chronic obstructive pulmonary disease with (acute) exacerbation, R06.02 - Shortness of breath
[2024-03-15 09:06] VITALS: BP 130/92; PULSE 95; O2SAT 97; BMI 29.0
== END 2024-03-15 11:01 | disposition home or self-care (01) ==
PROVIDERS: PCP Physician Assistant; Visit Provider Nurse Practitioner Family
DX: F41.1 Generalized anxiety disorder (principal); R06.02 Shortness of breath; J44.1 Chronic obstructive pulmonary disease with (acute) exacerbation

== ENCOUNTER 2024-05-01 08:23 | Outpatient (AMB) | payer OTHER, SELFPAY ==
[2024-05-01 08:41] VITALS: BP 120/70; PULSE 79; O2SAT 97; BMI 29.3
--- NOTE | 2024-05-01 08:41 | MHC.PC.OV ---
Vital Signs 05/01/24 08:41 Height 5 ft 7 in Weight 187 lb 6 oz BMI 29.3 BP 120/70 Blood Pressure Location Lt brachial Position Sitting Pulse 79 Pulse Source Pulse Oximeter Pulse Oximetry (%) 97 Oxygen Delivery Method Room Air Intake Visit Reasons: f/u HTN Intake Note: Patient is here to follow up on HTN. Product Manager Medical Device Required: No Entry Level Finance: Not Required per policy Accompanied by: Self / Same As Patient Allergies coconut Allergy (Unknown, Verified 05/01/24 09:02) UNKNOWN Medication List - Last Reconciled 05/01/24 by Neal Gann PA-C albuterol sulfate 90 mcg/actuation 1 inh inhalation QID PRN 30 days citalopram (Celexa) 10 mg PO DAILY fluticasone furoate-vilanterol 50-25 mcg/dose (Breo Ellipta) 1 inh inhalation ONCE lisinopril-hydrochlorothiazide 20-12.5 mg 1 tab PO DAILY 90 days Tobacco use date assessed: 05/01/24 Dental Screening Dental Screen Date: 10/28/23 HPI f/u HTN HPI Details Patient is a 43-year-old male here today for a follow-up visit Patient has a past medical history significant for hypertension, former smoker, history of, alcohol dependency.. Concern--> reports having difficulty with erections. He has been more sexually active with his girlfriend and will like to try sildenafil. Has made significant changes in his lifestyle and diet. He has stopped smoking and drinking over the last year. He reports he feels great. . Hypertension: Blood pressure acceptable today in office. He continues on lisinopril hydrochlorothiazide with good effect. Today patients blood pressure is acceptable. .. Anxiety: He continues on Celexa 10 mg with good effect. Again has stopped smoking and drinking. Has lost significant amount of weight due to being more physically active. .. Former smoker: Has completely quit smoking cigarettes. Does report smoking more marijuana. .. Alcohol use disorder: He reports he completely stopped drinking and feels great. . 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 Remi Ovalles, Irma Webb, James Morataya and colleagues, with an educational marck from [employer]. Review of Systems Const Denies headache(s) Eyes Denies loss of vision ENT Denies vertigo, Denies dizziness, Denies headache(s) and Denies sore throat Card Denies chest pain, Denies leg edema and Denies lightheadedness Resp Denies cough, Denies hemoptysis and Denies wheezing GI Denies abdominal pain, Denies melena, Denies constipation, Denies diarrhea and Denies vomiting Denies dysuria, Denies urinary frequency and Denies urinary urgency Musc Denies arthralgias, Denies joint swelling, Denies numbness and Denies tingling Neuro Denies Abnormal speech present, Denies behavioral changes, Denies vertigo, Denies dizziness, Denies headache(s), Denies loss of vision, Denies memory loss, Denies numbness and Denies tingling Psych Denies anxiety, Denies behavioral changes, Denies depression, Denies memory loss and Denies panic attacks Ubaldo/Lymph Denies easy bleeding and Denies easy bruising Aller/Immun Denies wheezing Physical exam (Primary Care) Vital Signs: Last Vital Signs Pulse 79 05/01/24 08:41 BP 120/70 05/01/24 08:41 Pulse Ox 97 05/01/24 08:41 Oxygen Delivery Method Room Air 05/01/24 08:41 BMI result Body Mass Index 29.3 Tobacco/Smoking Status: Tobacco use Status Tobacco use date assessed 05/01/24 05/01/24 08:44 Patient Tobacco Use Status Former Tobacco user 05/01/24 08:44 Tobacco use type Cigarette 05/01/24 08:44 e-Cigarette/Vaping Use Never Used 05/01/24 08:44 Thrive Assessment: Date of Thrive Assessment Date Thrive assessed 10/28/23 05/01/24 08:44 Const General: healthy appearing, no acute distress, alert and awake Nutritional Appearance: well nourished Orientation/consciousness: oriented to person, oriented to place and oriented to time HENMT Ears: TM's normal bilaterally General nose exam: Normal nasal mucous membranes and turbinates present Eyes Conjunctivae: conjunctivae normal Sclerae: sclerae normal Pupils: Equal, round and reactive pupils present Neck Neck: Yes no lymphadenopathy and Yes no JVD Thyroid: Thyroid normal Carotids: no bruits Resp Effort & Inspection: normal respiratory effort and not tachypneic Auscultation: no crackles, no rales, no rhonchi and no wheezes Cardio Rate: regular rate Rhythm: regular rhythm Heart sounds: no murmurs and normal S1 and S2 GI Palpation (GI): Soft to palpation, nontender, no hepatomegaly and no splenomegaly Auscultation: normal bowel sounds Skin General skin exam: no rashes or lesions noted and dry skin Neuro General: oriented to person, oriented to place and oriented to time Cranial nerves: Yes Equal, round and reactive pupils present Speech: No Abnormal speech present Gait exam (Neuro): Normal gait present Motor exam (neuro): no tremor noted Extrem Right upper extremity: full ROM Left upper extremity: full ROM Right lower extremity: full ROM; no edema Left lower extremity: full ROM; no edema Psych Mental Status: mental status grossly normal Speech and movement: Normal speech and movement present Affect: normal affect Attitude: cooperative Thought process: Normal thought process present Coding Level of Care Code Est Pt Level 4 (99509) Diagnoses Hypertension I10 Hypertension type: primary hypertension Impaired glucose metabolism R73.09 Former smoker Z87.891 Erectile disorder N52.9 RED (generalized anxiety disorder) F41.1 Assessment & Plan Assessment & Plan (1) Hypertension: Code(s): I10 - Essential (primary) hypertension Category: Medical Qualifiers: Hypertension type: primary hypertension Qualified Code(s): I10 - Essential (primary) hypertension Plan: Patient's blood pressure acceptable today in office. Continues on lisinopril hydrochlorothiazide. Has made lifestyle and dietary changes in his life and lost a lot of weight. Goal blood pressure to remain below 140/90. (2) Impaired glucose metabolism: Code(s): R73.09 - Other abnormal glucose Category: Medical Plan: Has lost significant amount of weight due to lifestyle changes. Will recheck fasting sugar and A1c. (3) Former smoker: Code(s): Z87.891 - Personal history of nicotine dependence Category: Social Hx Plan: Patient quit smoking over the last year. I congratulated him on this. (4) Erectile disorder: Code(s): N52.9 - Male erectile dysfunction, unspecified Category: Medical Plan: He reports having some erectile dysfunction as of late and is interested in trying Viagra before sexual activity. (5) RED (generalized anxiety disorder): Code(s): F41.1 - Generalized anxiety disorder Category: Medical Plan: Sean reports his anxiety has been well controlled with current dose of Celexa 10 mg. He has stopped smoking and drinking over the last year and feels great. Orders: Orders Hemoglobin A1c Today R73.09 - Other abnormal glucose Comprehensive [place]. Panel Fast Today Z13.1 - Encounter for screening for diabetes mellitus Lipid Panel Today E78.9 - Disorder of lipoprotein metabolism, unspecified Prostate Specific Antigen Scr Today N52.9 - Male erectile dysfunction, unspecified, Z12.5 - Encounter for screening for malignant neoplasm of prostate Medications: New sildenafil 100 mg PO DAILY 5 days 5 tabs 0RF N52.9 - Male erectile dysfunction, unspecified
== END 2024-05-01 09:13 | disposition home or self-care (01) ==
PROVIDERS: PCP Physician Assistant; Visit Provider Physician Assistant
DX: I10 Essential (primary) hypertension (principal); R73.09 Other abnormal glucose; Z87.891 Personal history of nicotine dependence; N52.9 Male erectile dysfunction, unspecified; F41.1 Generalized anxiety disorder

== ENCOUNTER → 2024-05-01 08:23 | Outpatient (BNVA) | payer OTHER, SELFPAY | PROVIDERS: PCP Physician Assistant; Visit Provider Physician Assistant ==

== ENCOUNTER → 2024-07-26 08:23 | Outpatient (BNVA) | payer SELFPAY | PROVIDERS: PCP Physician Assistant; Visit Provider Physician Assistant | DX: Z02.79 Encounter for issue of other medical certificate (principal) ==

== ENCOUNTER 2024-10-30 07:46 | Outpatient (AMB) | payer OTHER, SELFPAY ==
--- NOTE | 2024-10-30 08:07 | A.OFFPC_ITS ---
Vital Signs 10/30/24 08:09 Height 5 ft 7 in Weight 194 lb 6 oz BMI 30.4 BP 124/64 Blood Pressure Location Lt brachial Position Sitting Pulse 82 Pulse Source Pulse Oximeter Temp 97.3 F Temp Source Temporal Artery Scan Pulse Oximetry (%) 96 Oxygen Delivery Method Room Air Intake Visit Reasons: Annual Exam Intake Note: Patient is here today for a physical. Boomswing Operator Required: No Care Team Assistant: Not Required per policy Accompanied by: Self / Same As Patient Allergies coconut Allergy (Unknown, Verified 10/30/24 08:17) UNKNOWN Medication List - Last Reconciled 10/30/24 by Neal Gann PA-C albuterol sulfate 90 mcg/actuation 1 inh inhalation QID PRN 30 days citalopram (Celexa) 10 mg PO DAILY lisinopril-hydrochlorothiazide 20-12.5 mg 1 tab PO DAILY 90 days sildenafil 100 mg PO DAILY 5 days Tobacco use date assessed: 10/30/24 Dental Screening Dental Screen Date: 10/30/24 Did you have a dental visit in the last 12 months?: No Did you have a dental problem in the last 6 months where you did not have access to dental care?: No Was dental information given to patient?: Patient declined HPI Annual Exam HPI Details Patient is a 44-year-old male here today for a follow-up visit Patient has a past medical history significant for hypertension, former smoker, history of, alcohol dependency.. Concern--> Deric reports sleep disturbances characterized by leg movements during sleep. His girlfriend has noted these movements for over a year, describing them as violent shaking, although the patient feels fine upon waking. He denies any breathing difficulties during sleep, although he does snore. . . Hypertension: Blood pressure acceptable today in office. He continues on lisinopril hydrochlorothiazide with good effect. Today patients blood pressure is acceptable. .. Anxiety: He continues on Celexa 10 mg with good effect. Again has stopped smoking and drinking. Has lost significant amount of weight due to being more physically active. .. Former smoker: Has completely quit smoking cigarettes. Does report smoking more marijuana. .. Alcohol use disorder: He reports he completely stopped drinking completely and feels great. Vaccines: Up-to-date with COVID vaccine, Up to datetetanus vaccine Colon cancer screening: willing to do colonoscopy PFSH Medical History Tobacco dependence Surgical History No pertinent past surgical history Family History Father Diabetes Valvular heart disease Social History (Updated 10/30/24 @ 08:21 by Neal Gann PA-C) Housing: House Alcohol intake: former Year quit: 2023 Patient Tobacco Use Status: Former Tobacco user Tobacco use type: Cigarette e-Cigarette/Vaping Use: Never Used Second Hand Smoke Exposure: Yes Substance Use Type: Marijuana service: No Current occupational status: employed 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 1. Little interest or pleasure in doing things: not at all 2. Feeling down, depressed, or hopeless: not at all 3. Trouble falling or staying asleep, or sleeping too much: more than half the days 4. Feeling tired or having little energy: several days 5. Poor appetite or overeating: not at all 6. Feeling bad about yourself - or that you are a failure or have let yourself or your family down: not at all 7. Trouble concentrating on things, such as reading the newspaper or watching television: not at all 8. Moving or speaking so slowly that other people could have noticed. Or the opposite - being so fidgety or restless that you have been moving around a lot more than usual: not at all 9. Thoughts that you would be better off or of hurting yourself in some way: not at all Total score: 3 Depression Screening Interpretation: Positive Depression Screening Follow-up: Existing condition Depression Screening Done: Yes 33444 - PHQ-9 Billing: Yes Source: Developed by Drs. Remi Ovalles, Irma Webb, James Morataya and colleagues, with an educational marck from [employer]. Thrive Questionnaire Date Thrive assessed: 10/30/24 I am a: Patient What is your living situation today?: I have a steady place to live Within the past 12 months, did the food you bought not last and you didn't have the money to get more?: Never true Within the past 12 months, did you worry whether your food would run out before you got money to buy more?: Never true Do you have trouble paying for medicines?: No Do you have trouble getting transportation to medical appointments?: No Do you have trouble paying your heating and electricity bill?: No Do you have trouble taking care of your child, family member or friend?: No Do you have trouble with day-to-day activities such as bathing, preparing meals, shopping, managing finances, etc.?: No Are you currently unemployed and looking for a job?: No Are you interested in more education?: No Please select the resources that you would like help with: None Currently or been in a relationship where the following occur: No concerns reported THRIVE Score: 0 AUDIT C Alcohol Use Questionnaire (AUDIT-C) 1. How often do you have a drink containing alcohol?: Never Total Score: 0 RED-7 AMB Questionnaire RED-7 Date RED - 7 assessed: 10/30/24 Feeling nervous, anxious, or on edge: 2 = More than half the days Not being able to stop or control worryin = More than half the days Worrying too much about different things: 2 = More than half the days Trouble relaxin = More than half the days Being so restless that it is hard to sit still: 0 = Not at all Becoming easily annoyed or irritable: 0 = Not at all Feeling afraid as if something awful might happen: 0 = Not at all Total RED-7 score (0-4 normal; 5-9 mild; 10-14 moderate; 15-21 severe): 8 Source: Developed by Drs. Remi Ovalles, Irma Webb, James Morataya and colleagues, with an educational marck from [employer]. RED-7 Assessment Billing RED-7 Assessment Tool: RED-7 Assessment 37675 Review of Systems Const Denies body aches, Denies chills, Denies excessive sweating, Denies fatigue, Denies fever(s) and Denies headache(s) Eyes Denies blurry vision ENT Denies dysphagia, Denies vertigo, Denies dizziness, Denies headache(s), Denies hearing loss and Denies tinnitus Card Denies chest pain, Denies chest pain with activity, Denies syncope, Denies irregular heart rhythm and Denies dyspnea Resp Denies chest congestion, Denies cough, Denies hemoptysis, Denies dyspnea and Denies wheezing GI Denies abdominal pain, Denies melena, Denies hematochezia, Denies coffee ground emesis, Denies dysphagia, Denies diarrhea, Denies nausea and Denies vomiting Denies difficulty urinating, Denies dysuria, Denies urinary frequency, Denies urinary hesitancy and Denies urinary urgency Musc Denies arthralgias, Denies limited range of motion, Denies muscle cramps and Denies muscle weakness Skin/Breast Denies rash and Denies skin ulcer Neuro Denies Abnormal speech present, Denies confusion, Denies vertigo, Denies dizziness, Denies syncope, Denies headache(s), Denies memory loss and Denies seizure-like activity Psych Denies anxiety, Denies confusion, Denies depression, Denies memory loss, Denies panic attacks and Denies paranoia Endo Denies excessive sweating, Denies fatigue, Denies flushing, Denies polydipsia and Denies polyuria Aller/Immun Denies wheezing Physical exam (Primary Care) Vital Signs: Last Vital Signs Temp 97.3 F 10/30/24 08:09 Pulse 82 10/30/24 08:09 BP 124/64 10/30/24 08:09 Pulse Ox 96 10/30/24 08:09 Oxygen Delivery Method Room Air 10/30/24 08:09 BMI result Body Mass Index 30.4 BMI Assessment/Plan discussion: High BMI High, discussed plan: lifestyle, weight reduction, dietary and physical activity Tobacco/Smoking Status: Tobacco use Status Tobacco use date assessed 10/30/24 10/30/24 08:15 Patient Tobacco Use Status Former Tobacco user 10/30/24 08:15 Tobacco use type Cigarette 10/30/24 08:15 e-Cigarette/Vaping Use Never Used 10/30/24 08:15 PHQ-9: PHQ-9 Score PHQ-9: Total score 3 10/30/24 08:15 Depression Screening Interpretation: Positive Depression Screening Follow-up: Existing condition Thrive Assessment: Date of Thrive Assessment Date Thrive assessed 10/30/24 10/30/24 08:15 Currently or been in a relationship where the following occur: No concerns reported Const General: cooperative, comfortable, no acute distress, alert and awake; No confusion Orientation/consciousness: oriented to person, oriented to place, patient oriented x3 and No confusion HENMT Head: Yes normocephalic Ears: external ears normal and TM's normal bilaterally Face and sinus: No sinus tenderness Mouth: Normal oral and palatal mucosa present and tongue normal Teeth and gingiva: dentition normal and gingiva normal Throat: Yes posterior oropharynx normal, Yes tonsils normal and Yes uvula midline Eyes Conjunctivae: conjunctivae normal Sclerae: sclerae normal Pupils: Equal, round and reactive pupils present EOM: EOMs intact bilaterally Direct Ophthalmoscopy: No no photophobia Neck Neck: Yes no lymphadenopathy, No tender and Yes no JVD Thyroid: Thyroid normal Carotids: no bruits Chest Chest palpation & inspection: no tenderness Resp Effort & Inspection: normal respiratory effort, no audible wheezes, not labored and no stridor Auscultation: no crackles, no rales, no rhonchi and no wheezes Cardio Jugular venous distension: no JVD Rate: regular rate, not bradycardic and not tachycardic Rhythm: regular rhythm Bruits: no carotid bruits Peripheral pulses: Peripheral pulses 2+ throughout GI Inspection: Yes normal to inspection, No abdominal wall ecchymosis and No visible herniation Palpation (GI): Soft to palpation, nontender, no guarding, not rigid and No hepatosplenomegaly present Auscultation: normoactive bowel sounds General: Yes no CVA tenderness Back/Spine/Pelvis Back: no CVA tenderness and No back tenderness Cervical Spine: cervical ROM normal Thoracic/Lumbar Spine: thoracic and lumbar spine normal to inspection, straight leg raise negative bilaterally, No thoraco-lumbar ROM limited and No lumbar spinal tenderness Skin Lesions: no lesions Rashes: no rashes Wounds: no wounds Neuro General: oriented to person, oriented to place, patient oriented x3, CN's II-XI intact bilaterally and No confusion Cranial nerves: Yes Equal, round and reactive pupils present and Yes Normal accommodation reflex present Cognition (Neuro): normal cognition Speech: No Abnormal speech present Gait exam (Neuro): Normal gait present Motor exam (neuro): 5/5 motor strength present throughout Extrem Right upper extremity: full ROM; no cyanosis Left upper extremity: full ROM; no cyanosis Right lower extremity: no edema Left lower extremity: no edema Psych Appearance: grossly normal Mental Status: mental status grossly normal Affect: normal affect Attitude: cooperative Thought process: Normal thought process present Coding Level of Care Code Est Pt Prev Care 40-64y(32390) Diagnoses Annual physical exam Z00.00 Hypertension I10 Hypertension type: primary hypertension Impaired glucose metabolism R73.09 Former smoker Z87.891 Obstructive sleep apnea G47.33 Restless sleeper G47.9 Colon cancer screening Z12.11 Class 1 obesity E66.811 Additional Codes PHQ-9 - 31025 - PHQ-9 Billing: Yes ([id number]) RED-7 Assessment Billing - RED-7 Assessment Tool: RED-7 Assessment [id number] ([id number]) Assessment & Plan Assessment & Plan (1) Annual physical exam: Code(s): Z00.00 - Encounter for general adult medical examination without abnormal findings Category: Medical Plan: As per HPI (2) Hypertension: Code(s): I10 - Essential (primary) hypertension Category: Medical Qualifiers: Hypertension type: primary hypertension Qualified Code(s): I10 - Essent ial (primary) hypertension Plan: Patient's blood pressure acceptable today in office. Continues on lisinopril hydrochlorothiazide. Has made lifestyle and dietary changes in his life and lost a lot of weight. Goal blood pressure to remain below 140/90. (3) Impaired glucose metabolism: Code(s): R73.09 - Other abnormal glucose Category: Medical Plan: Has lost significant amount of weight due to lifestyle changes. Will recheck fasting sugar and A1c. (4) Former smoker: Code(s): Z87.891 - Personal history of nicotine dependence Category: Social Hx Plan: He continues to abstain from cigarettes (5) Obstructive sleep apnea: Code(s): G47.33 - Obstructive sleep apnea (adult) (pediatric) Category: Medical Plan: Patient has STOP BANG questionnaire-moderate risk for obstructive sleep apnea, Patient's [place] Sleepiness scale score of 0 (6) Restless sleeper: Code(s): G47.9 - Sleep disorder, unspecified Category: Medical Plan: The patient will be referred for a sleep study to evaluate for obstructive sleep apnea, as well as to a neurology sleep specialist for further assessment of the sleep disturbances. The sleep study will involve an overnight test to monitor sleep patterns and identify any potential issues such as sleep apnea. (7) Colon cancer screening: Code(s): Z12.11 - Encounter for screening for malignant neoplasm of colon Category: Medical Plan: Patient willing to be referred to gastro for colonoscopy (8) Class 1 obesity: Code(s): E66.811 - Obesity, class 1 Category: Medical Plan: Patient does understand his BMI is over 30 will work on being more physically active and adapt to better eating habits to reduce his weight Orders: Orders RT home sleep study Today G47.33 - Obstructive sleep apnea (adult) (pediatric) Referrals Gastroenterology Referral Z12.11 - Encounter for screening for malignant neoplasm of colon Neurology Referral G47.33 - Obstructive sleep apnea (adult) (pediatric), G47.9 - Sleep disorder, unspecified
[2024-10-30 08:09] VITALS: BP 124/64; PULSE 82; TEMP 36.3; O2SAT 96; BMI 30.4
== END 2024-10-30 08:30 | disposition home or self-care (01) ==
LOC: HO.HMCH 07:47
PROVIDERS: PCP Physician Assistant; Visit Provider Physician Assistant
DX: Z00.00 Encounter for general adult medical examination without abnormal findings (principal); I10 Essential (primary) hypertension; E66.811 Obesity, class 1; Z68.30 Body mass index [BMI] 30.0-30.9, adult; R73.09 Other abnormal glucose; G47.33 Obstructive sleep apnea (adult) (pediatric); Z87.891 Personal history of nicotine dependence; G47.9 Sleep disorder, unspecified; Z12.11 Encounter for screening for malignant neoplasm of colon

== ENCOUNTER → 2024-10-30 07:46 | Outpatient (BNVA) | payer OTHER, SELFPAY | PROVIDERS: PCP Physician Assistant; Visit Provider Physician Assistant | DX: Z00.00 Encounter for general adult medical examination without abnormal findings (principal); I10 Essential (primary) hypertension; F41.9 Anxiety disorder, unspecified; G47.33 Obstructive sleep apnea (adult) (pediatric); R73.09 Other abnormal glucose; E66.811 Obesity, class 1; Z68.30 Body mass index [BMI] 30.0-30.9, adult; Z87.891 Personal history of nicotine dependence | CPT/HCPCS: 96127 ==

== ENCOUNTER 2024-12-21 14:20 | Outpatient (AMB) | payer OTHER, SELFPAY ==
--- NOTE | 2024-12-21 14:51 | A.OFFVIS_ITS ---
Vital Signs 12/21/24 14:52 Height 5 ft 7 in Weight 201 lb 6 oz BMI 31.5 BP 120/76 Blood Pressure Location Rt brachial Position Sitting Pulse 80 Pulse Source Pulse Oximeter Pulse Oximetry (%) 97 Oxygen Delivery Method Room Air Intake Visit Reasons: 71LVM+LET INP-Sleep disorder Intake Note: Patient presents CRISIS THERAPIST Sleep disturbance. Leg movements during sleep. His girlfriend has noted these movements for over a year, describing them as violent shaking, although the patient feels fine upon waking. He denies any breathing difficulties during sleep, although he does snore/grind teeth. HST booked for 01/16 Goes to bed around 9-10 and wakes up at 4:30am. sleeps through night. Patient does nod out for about 10min.(when sitting down not active can fall asleep . Accompanied by: Self / Same As Patient Allergies coconut Allergy (Unknown, Verified 12/21/24 14:55) UNKNOWN HPI Comments Details: 44 year old male referred to us for sleep apnea evaluation by his PCP. He says his feet shake violently at night. He snores loudly, and denies gasping for air and apneas. He goes to bed at 10pm and wakes up at 4am, with 0-1x a night. he has a deviated septum, due to an old baseball injury. He denies morning headache, clenches his teeth at night and has a mouth guard. Restlegs at night, denies pins and needles, burning pain and tingling. Denies radiating pain in feet. Will get cramps at night and wakes up out of stretch. His BP is well controlled, has anxiety is managed with citalopram 10mg po and panic attacks, albuterol use for environmentally induced asthma. He is a former smoker, quit smoking a year ago. Takes MJ and edibles once month. 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 Current occupational exposures/hazards: No Cognitive needs: No Hearing needs: No Vision needs: No Physical Exam Vital Signs: Last Vital Signs Pulse 80 12/21/24 14:52 BP 120/76 12/21/24 14:52 Pulse Ox 97 12/21/24 14:52 Oxygen Delivery Method Room Air 12/21/24 14:52 BMI result Body Mass Index 31.5 Const General: cooperative, comfortable and no acute distress Nutritional Appearance: average body habitus Orientation/consciousness: patient oriented x3 HEENT Face and sinus: Yes face symmetric Throat: Yes other (mallampti score is 3) Eyes Pupils: Equal, round and reactive pupils present Neck Neck: Yes full ROM Resp Effort & Inspection: normal respiratory effort and able to speak in complete sentences Neuro General: patient oriented x3 and moves all extremities Cranial nerves: Yes Facial sensation intact/muscles of mastication intact, Yes Equal, round and reactive pupils present, Yes Normal accommodation reflex present, Yes Normal facial strength present, Yes Midline tongue present, Yes Ability to bilaterally rotate head present and Yes Ability to bilaterally elevate shoulders present Cognition (Neuro): normal cognition Gait exam (Neuro): Normal gait present Motor exam (neuro): 5/5 motor strength present throughout Psych Appearance: grossly normal Mental Status: mental status grossly normal Thought process: Normal thought process present Thought content: Normal thought content present Assessment & Plan Assessment & Plan (1) Excessive daytime sleepiness: Code(s): G47.19 - Other hypersomnia Category: Medical (2) Loud snoring: Code(s): R06.83 - Snoring Category: Medical (3) History of deviated nasal septum: Code(s): Z87.09 - Personal history of other diseases of the respiratory system Category: Medical Plan HST r/o justin ENT referral Deviated Septum Snoring Labs to r/o deficiencies Orders: Orders Complete Blood Count no Diff Today G47.19 - Other hypersomnia Hemoglobin A1c Today G47.19 - Other hypersomnia Vitamin D 25-OH Total Today G47.19 - Other hypersomnia Vitamin B6 Today G47.19 - Other hypersomnia TSH reflex Free T4 Today G47.19 - Other hypersomnia Ferritin Today G47.19 - Other hypersomnia Homocysteine Today G47.19 - Other hypersomnia, G47.9 - Sleep disorder, unspecified, R53.83 - Other fatigue Methylmalonic Acid Today G47.19 - Other hypersomnia, G47.9 - Sleep disorder, unspecified, R53.83 - Other fatigue Magnesium Today G47.19 - Other hypersomnia Vitamin B12 and Folate Today G47.19 - Other hypersomnia Vitamin B1 Today G47.19 - Other hypersomnia Referrals Ear/Nose/Throat Referral G47.33 - Obstructive sleep apnea (adult) (pediatric), Z87.09 - Personal history of other diseases of the respiratory system Patient Instructions: Sleep Hygiene provided: set a scheduled bedtime and wake time to help regulate the circadian rhythm and balance the release of pituitary hormones. Sleep in a dark room, temperatures below 68 degrees, and no devices n bed. Limit caffeinated products 6 hours prior to bed, and limit fluids 2-4 hours prior to bed. Gentle night yoga, diffusing essential oils, and playing soft music can be relaxing. Coding Level of Care Code New Pt Level 4 (31284) Diagnoses Excessive daytime sleepiness G47.19 Loud snoring R06.83 History of deviated nasal septum Z87.09 Sleep Questionnaire Difficulty falling asleep: No Difficulty staying asleep?: No Number of arousals: 0-1 Snoring: Yes Witnessed apneas: No Gasping arousals: No Nocturia: No GERD: No Vivid dreams: Yes (intense dad and mom playing cards) Acting out dreams: No Abnormal behavior in sleep: No Abnormal movements in sleep: No (slept walk ) Morning headaches: No Excessive daytime sleepiness: Yes Daytime naps: Yes (10 min naps) Restless legs: Yes Hallucinations: No Sleep paralysis: No Drop attacks: No Sleep Study: No CPAP: No
[2024-12-21 14:52] VITALS: BP 120/76; PULSE 80; O2SAT 97; BMI 31.5
== END 2024-12-21 16:03 | disposition home or self-care (01) ==
PROVIDERS: PCP Physician Assistant; Visit Provider Physician Assistant Medical
DX: G47.19 Other hypersomnia (principal); R06.83 Snoring; Z87.09 Personal history of other diseases of the respiratory system
CPT/HCPCS: 99204

== ENCOUNTER → 2025-01-16 10:56 | Outpatient (REF) | payer OTHER, SELFPAY ==
--- OUTSIDE RECORDS SUMMARY | 2025-01-16 14:44 | XMS_ITS | Clinical Summary ---
Author Organization [facility] Address [address] [place] [address] Care Team Providers Care Personal Care Aide Name Role Phone Unavailable Primary Care Provider Unavailabl e Encounters Date Type Department Care Team Description 12/26/2024 Transcribe Orders [facility] NEUROLOGY SCAN System, Provider Not In Obstructive sleep apnea (adult) (pediatric) (Primary Dx) from Last 3 Months Social History Tobacco Use Types Packs/Day Years Used Date Smoking Tobacco: Never Assessed Sex and Gender Information Value Date Recorded Sex Assigned at Not on file Legal Sex Male 2:43 PM EDT Gender Identity Not on file Sexual Orientation Not on file Plan of Treatment Health Maintenance Due Date Last Done Comments Hepatitis C Virus Screening 1978 HIV Screening 1991 DTaP/Tdap/Td Vaccines (1 - Tdap) 1997 Hepatitis B Vaccines (1 of 3 - 19+ 3-dose series) 1997 COVID-19 Vaccine (2023-2 5 season) 2025 Pneumococcal Vaccine: Pediat deyanira (0-5 Years) and At-Risk Patients (6 to 49 Years) Aged Out No longer eligible b ased on patient's age to complete this topic
--- OUTSIDE RECORDS SUMMARY | 2025-01-16 14:44 | XMS_ITS ---
Author Name [facility] Organization Unknown Problems Problem Status Onset Date Problem Type Date of Resoluti on Source Obstructive sleep apnea (adult) (pediatric) active [facility]
== END ==
LOC: HO.SL 10:56
PROVIDERS: PCP Physician Assistant; Visit Provider Physician Assistant
DX: G47.33 Obstructive sleep apnea (adult) (pediatric) (principal); R06.83 Snoring
CPT/HCPCS: 95806

== ENCOUNTER → 2025-01-16 11:10 | Outpatient (BNV) | payer OTHER, SELFPAY | PROVIDERS: PCP Physician Assistant; Visit Provider Internal Medicine | DX: R06.83 Snoring (principal) | CPT/HCPCS: 95806 ==

== ENCOUNTER 2025-02-16 08:32 | Outpatient (AMB) | payer OTHER, SELFPAY ==
[2025-02-16 08:55] VITALS: BP 140/103; PULSE 88; BMI 32.2
--- NOTE | 2025-02-16 08:55 | MHC.OFFVIS ---
Vital Signs 02/16/25 08:55 Height 5 ft 7 in Weight 205 lb 7.533 oz BMI 32.2 BP 140/103 H Blood Pressure Location Rt brachial Position Sitting Pulse 88 Intake Visit Reasons: [place] screening Intake Note: New patient in office today for colonoscopy screening. CC: Patient reports that he've seen blood in stool sometimes when he use to drink all weekend long. Patient denies other GI symptoms today. Auto Heater Mechanic Required: No Accompanied by: Self / Same As Patient Allergies coconut Allergy (Unknown, Verified 02/16/25 09:16) UNKNOWN No Known Drug Allergies Allergy (Unknown, Verified 02/16/25 09:16) none HPI HPI [place] screening: Details: 44-year-old male here for preprocedural meeting to discuss a screening colonoscopy. He is referred by Neal Gann. 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 No bowel or upper GI problems. He is naive to anesthesia and sedation. He has a cardiac murmur but no active problems and respiratory problems. He is past smoker but quit over a year. No ID problems. There is no known FHX crc or polyps. 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 Current occupational exposures/hazards: No Cognitive needs: No Hearing needs: No Vision needs: No Review of Systems Const Denies fatigue, Denies fever(s), Denies night sweats, Denies poor appetite and Denies weight loss ENT Reports Normal hearing present, Denies dysphagia, Denies odynophagia, Denies throat swelling and Denies tongue swelling Card Reports no additional complaints Resp Reports no additional complaints GI Details: Denies abdominal pain, Denies melena, Denies bloating, Denies hematochezia, Denies constipation, Denies GI cramping, Denies dysphagia, Denies excessive flatus, Denies early satiety, Denies heartburn, Denies diarrhea, Denies nausea, Denies odynophagia, Denies vomiting and Denies hematemesis Skin/Breast Denies pruritus, Denies lesions, Denies rash and Denies jaundice Neuro Reports Normal hearing present and Denies Abnormal speech present Endo Denies fatigue Aller/Immun Denies throat swelling and Denies tongue swelling Physical Exam Vital Signs: Last Vital Signs Pulse 88 02/16/25 08:55 BP 140/103 H 02/16/25 08:55 BMI result Body Mass Index 32.2 Const General: cooperative, no acute distress, well developed and well groomed Nutritional Appearance: well nourished and obese centrally obese Orientation/consciousness: oriented to person, oriented to place and oriented to time Limitations: No language barrier HEENT Head: Yes normocephalic and Yes atraumatic Eyes General: appearance normal, both eyes and all related structures Pupils: Equal, round and reactive pupils present Neck Neck: Yes normal visual inspection and Yes no lymphadenopathy Thyroid: Thyroid normal Resp Effort & Inspection: normal respiratory effort and able to speak in complete sentences Auscultation: clear to auscultation bilaterally Cardio Rate: regular rate Rhythm: regular rhythm Heart sounds: Murmur heart sound present systolic (mild late mitral no radiation to axilla) Peripheral pulses: radial pulses present and posterior tibial pulses present GI Inspection: No distended, No Abdominal panniculus present and Yes obesity Palpation (GI): Soft to palpation, nontender, no guarding, not rigid and No hepatosplenomegaly present Percussion: Yes normal to percussion Auscultation: normal bowel sounds Rectal Exam - Male: Yes deferred Skin General skin exam: no rashes or lesions noted, turgor normal, skin not dry, no jaundice, No spider nevi and no striae Rashes: no rashes Nails: normal Neuro General: oriented to person, oriented to place and oriented to time Cranial nerves: Yes Equal, round and reactive pupils present and Yes Normal hearing present Speech: No Abnormal speech present Extrem General: Yes normal to inspection, No clubbing, No cyanosis and No edema Psych Appearance: grossly normal and well kempt Mental Status: mental status grossly normal Speech and movement: Normal speech and movement present Affect: normal affect Attitude: cooperative Thought process: Normal thought process present and not confabulating Thought content: Normal thought content present Insight: Good insight present (Psych) Judgement: Good judgement present (Psych) Assessment & Plan Assessment & Plan (1) Pre-op examination: Code(s): Z01.818 - Encounter for other preprocedural examination Category: Medical Plan This is his first colonoscopy. No bowel or upper GI problems. He is naive to anesthesia and sedation. He has a cardiac murmur but no active problems and respiratory problems. He is past smoker but quit over a year. No ID problems. There is no known FHX crc or polyps. Orders: Orders Comprehensive Met. Panel Today Z01.818 - Encounter for other preprocedural examination Complete Blood Count Auto Diff Today Z01.818 - Encounter for other preprocedural examination Referrals GI Procedure Notification Z01.818 - Encounter for other preprocedural examination Medications: New sodium,potassium,mag sulfates 17.5-3.13-1.6 gram (Suprep Bowel Prep Kit) 480 mL orally; FOR COLONOSCOPY PREP 354 mL 0RF Coding Level of Care Code New Pt Level 3 (66309) Diagnoses Pre-op examination Z01.818
--- OUTSIDE RECORDS SUMMARY | 2025-02-16 08:55 | XMS_ITS | Clinical Summary ---
Author Organization [facility] Address [address] [place] [address] Care Team Providers Care Speech Language Pathologist Prn Name Role Phone Unavailable Primary Care Provider Unavailabl e Encounters Date Type Department Care Team Description 12/26/2024 Transcribe Orders [facility] NEUROLOGY SCAN System, Provider Not In Obstructive [...]
== END 2025-02-16 09:42 | disposition home or self-care (01) ==
LOC: HO.HGI 08:33
PROVIDERS: PCP Physician Assistant; Visit Provider Nurse Practitioner
DX: Z01.818 Encounter for other preprocedural examination (principal); Z12.11 Encounter for screening for malignant neoplasm of colon
CPT/HCPCS: 99203

== ENCOUNTER 2025-05-01 08:23 | Outpatient (AMB) | payer OTHER, SELFPAY ==
--- NOTE | 2025-05-01 08:40 | MHC.PC.OV ---
Vital Signs 05/01/25 08:41 Height 5 ft 7 in Weight 210 lb BMI 32.9 BP 130/70 Blood Pressure Location Lt brachial Position Sitting Pulse 88 Pulse Source Pulse Oximeter Temp 97.3 F Temp Source Temporal Artery Scan Pulse Oximetry (%) 97 Oxygen Delivery Method Room Air Intake Visit Reasons: follow up HTN Intake Note: Patient is here to follow up on HTN. Maritime Guard Required: No Civil Engineer'S Aide: Not Required per policy Accompanied by: Self / Same As Patient Allergies coconut Allergy (Unknown, Verified 05/01/25 08:51) UNKNOWN No Known Drug Allergies Allergy (Unknown, Verified 05/01/25 08:51) none Medication List - Last Reconciled 05/01/25 by Neal Gann PA-C albuterol sulfate 90 mcg/actuation 1 inh inhalation QID PRN 30 days citalopram (Celexa) 10 mg PO DAILY lisinopril-hydrochlorothiazide 20-12.5 mg 1 tab PO DAILY 90 days sildenafil 100 mg PO DAILY 5 days sodium,potassium,mag sulfates 17.5-3.13-1.6 gram (Suprep Bowel Prep Kit) 480 mL orally; FOR COLONOSCOPY PREP Tobacco use date assessed: 05/01/25 Dental Screening Dental Screen Date: 10/30/24 HPI follow up HTN HPI Details Patient is a 44-year-old male here today for a follow-up visit. Patient has a past medical history significant for hypertension, class 1 obesity former smoker, history of, alcohol dependency.. Concern--> no concerns today . . Hypertension: Blood pressure acceptable today in office. He continues on lisinopril hydrochlorothiazide with good effect. Today patients blood pressure is acceptable. .. Class 1 obesity: Has noted to gain weight since last office visit. He reports he has not been as physically active as of lately. .. Anxiety: He continues on Celexa 10 mg with good effect. His anxiety has been much better since he has stopped drinking heavily .. Former smoker: Has completely quit smoking cigarettes. Does report smoking more marijuana. .. Alcohol use disorder: He has a previous issue with alcohol use disorder though now is only drinking a few glasses of wine per month.. 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 Rmei Ovalles, Irma Webb, James Morataya and colleagues, with an educational marck from [employer]. Review of Systems Const Denies headache(s) Eyes Denies loss of vision ENT Denies vertigo, Denies dizziness, Denies headache(s) and Denies sore throat Card Denies chest pain, Denies leg edema and Denies lightheadedness Resp Denies cough, Denies hemoptysis and Denies wheezing GI Denies abdominal pain, Denies melena, Denies constipation, Denies diarrhea and Denies vomiting Denies dysuria, Denies urinary frequency and Denies urinary urgency Musc Denies arthralgias, Denies joint swelling, Denies numbness and Denies tingling Neuro Denies Abnormal speech present, Denies behavioral changes, Denies vertigo, Denies dizziness, Denies headache(s), Denies loss of vision, Denies memory loss, Denies numbness and Denies tingling Psych Denies anxiety, Denies behavioral changes, Denies depression, Denies memory loss and Denies panic attacks Ubaldo/Lymph Denies easy bleeding and Denies easy bruising Aller/Immun Denies wheezing Physical exam (Primary Care) Vital Signs: Last Vital Signs Temp 97.3 F 05/01/25 08:41 Pulse 88 05/01/25 08:41 BP 130/70 05/01/25 08:41 Pulse Ox 97 05/01/25 08:41 Oxygen Delivery Method Room Air 05/01/25 08:41 BMI result Body Mass Index 32.9 BMI Assessment/Plan discussion: High BMI High, discussed plan: lifestyle, weight reduction, dietary and physical activity Tobacco/Smoking Status: Tobacco use Status Tobacco use date assessed 05/01/25 05/01/25 08:43 Patient Tobacco Use Status Former Tobacco user 05/01/25 08:43 Tobacco use type Cigarette 05/01/25 08:43 e-Cigarette/Vaping Use Never Used 05/01/25 08:43 Thrive Assessment: Date of Thrive Assessment Date Thrive assessed 10/30/24 05/01/25 08:43 Const Other: obese General: healthy appearing, no acute distress, alert and awake Nutritional Appearance: well nourished Orientation/consciousness: oriented to person, oriented to place and oriented to time HENMT Ears: TM's normal bilaterally General nose exam: Normal nasal mucous membranes and turbinates present Eyes Conjunctivae: conjunctivae normal Sclerae: sclerae normal Pupils: Equal, round and reactive pupils present Neck Neck: Yes no lymphadenopathy and Yes no JVD Thyroid: Thyroid normal Carotids: no bruits Resp Effort & Inspection: normal respiratory effort and not tachypneic Auscultation: no crackles, no rales, no rhonchi and no wheezes Cardio Rate: regular rate Rhythm: regular rhythm Heart sounds: no murmurs and normal S1 and S2 GI Palpation (GI): Soft to palpation, nontender, no hepatomegaly and no splenomegaly Auscultation: normal bowel sounds Skin General skin exam: no rashes or lesions noted and dry skin Neuro General: oriented to person, oriented to place and oriented to time Cranial nerves: Yes Equal, round and reactive pupils present Speech: No Abnormal speech present Gait exam (Neuro): Normal gait present Motor exam (neuro): no tremor noted Extrem Right upper extremity: full ROM Left upper extremity: full ROM Right lower extremity: full ROM; no edema Left lower extremity: full ROM; no edema Psych Mental Status: mental status grossly normal Speech and movement: Normal speech and movement present Affect: normal affect Attitude: cooperative Thought process: Normal thought process present Coding Level of Care Code Est Pt Level 4 (85113) Diagnoses Hypertension I10 Hypertension type: primary hypertension Impaired glucose metabolism R73.09 Colon cancer screening Z12.11 Class 1 obesity E66.811 Assessment & Plan Assessment & Plan (1) Hypertension: Code(s): I10 - Essential (primary) hypertension Category: Medical Qualifiers: Hypertension type: primary hypertension Qualified Code(s): I10 - Essential (primary) hypertension Plan: Patient's blood pressure acceptable today in office. Continues on lisinopril hydrochlorothiazide. Has made lifestyle and dietary changes in his life and lost a lot of weight. Goal blood pressure to remain below 140/90. (2) Impaired glucose metabolism: Code(s): R73.09 - Other abnormal glucose Category: Medical Plan: Has lost significant amount of weight due to lifestyle changes. Will recheck fasting sugar and A1c. (3) Colon cancer screening: Code(s): Z12.11 - Encounter for screening for malignant neoplasm of colon Category: Medical Plan: Has followed up with Gastroenterology has been prescribed bowel prep. (4) Class 1 obesity: Code(s): E66.811 - Obesity, class 1 Category: Medical Plan: Patient does understand his BMI is over 30 will work on being more physically active and adapt to better eating habits to reduce his weight Orders: Orders Comprehensive Tucker. Panel Fast Today I10 - Essential (primary) hypertension Prostate Specific Antigen Scr Today I10 - Essential (primary) hypertension, Z12.5 - Encounter for screening for malignant neoplasm of prostate Hemoglobin A1c Today R73.09 - Other abnormal glucose Lipid Panel Today E78.9 - Disorder of lipoprotein metabolism, unspecified Microalbumin, Random (w Creat) Today I10 - Essential (primary) hypertension Complete Blood Count no Diff Today I10 - Essential (primary) hypertension
[2025-05-01 08:41] VITALS: BP 130/70; PULSE 88; TEMP 36.3; O2SAT 97; BMI 32.9
== END 2025-05-01 09:31 | disposition home or self-care (01) ==
PROVIDERS: PCP Physician Assistant; Visit Provider Physician Assistant
DX: I10 Essential (primary) hypertension (principal); R73.09 Other abnormal glucose; Z12.11 Encounter for screening for malignant neoplasm of colon; E66.811 Obesity, class 1